=== PATIENT | female | born 1980 | race Caucasian/White ===

== ENCOUNTER 2018-01-12 21:56 | Emergency (ER) | payer MEDICAID, SELFPAY ==
[2018-01-12 21:58] VITALS: BP 127/87; PULSE 125; RESP 22; TEMP 36.4; O2SAT 97; BMI 28.3
[2018-01-12 23:21] VITALS: PULSE 92; RESP 18; O2SAT 100
--- NOTE | 2018-01-12 23:22 | ED.VISSUMM ---
- ER Visit Summary Date of Service: 01/12/18 Chief Complaint: Constipation History of Present Illness: The patient is a 37 F who states that she is possibly 9 weeks . She is not exactly sure. 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 She states she had an ultrasound showed a single live intrauterine . She states she was taking Zofran for nausea not realizing that it can cause constipation. She states that she has not had a bowel movement for 2 weeks. She states that she feels rectal pressure and the urge to go but just cannot. She has tried 2 different types of stool softeners and today drank half a bottle of magnesium citrate. She states then she began to shake (she has a history of tremors with anxiety). She states that then she started to hyperventilate. Physical Examination: Afebrile vital signs stable Gen: Well-nourished well-developed Head: Normocephalic atraumatic Eyes: Perrl EOMI ENT: TMs clear no rhinorrhea moist mucous membranes Neck: Supple no lymphadenopathy no JVD nontender CVS: Regular rate rhythm no murmurs normal S1-S2 Respiratory: No distress clear to auscultation bilaterally chest nontender Abdomen: Soft nontender nondistended normal bowel sounds no masses Rectal: Rectal exam shows soft stool in the rectal vault. There is no obvious impaction. Back: Nontender Extremity: Nontender no edema Skin: Normal color no rash Neuro: alert orientated ?3 CN II-XII intact normal strength sensation reflexes gait cerebellar Psych: Anxious with a tremor that is inconsistent based on the patient's ability to laugh her to speak it will resolve. Emergency Department Course and Treatment: She will use magnesium citrate. I do not see a reason why she cannot have a bowel movement soon. I do not believe she needs to be disimpacted as there is no impaction. She will follow-up with her doctors return if worsening or concerns Impression: 1. Constipation 2. First trimester This note was generated with Fooooo dictation software. It may contain incorrect words, spelling, and punctuation that were not noted in review of the chart prior to signing ED Disposition - Plan for ED Patient: Disposition: Home or Assisted Living Chief Complaint: Constipation Instructions: ED Constipation Prescriptions: Magnesium Citrate [Citrate Of Magnesia] 300 ml PO X1 #3 bottle Referrals: Malia,Velasquez, DO [Primary Care Provider] - As Needed
--- NOTE | 2018-01-12 23:25 | ED.DCSUM_ITS ---
- ER Visit Summary Date of Service: 01/12/18 Chief Complaint: Constipation History of Present Illness: The patient is a 37 F who states that she is possibly 9 weeks . She is not exactly sure. 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 She states she had an ultrasound showed a single live intrauterine . She states she was taking Zofran for nausea not realizing that it can cause constipation. She states that she has not had a bowel movement for 2 weeks. She states that she feels rectal pressure and the urge to go but just cannot. She has tried 2 different types of stool softeners and today drank half a bottle of magnesium citrate. She states then she began to shake (she has a history of tremors with anxiety). She states that then she started to hyperventilate. Physical Examination: Afebrile vital signs stable Gen: Well-nourished well-developed Head: Normocephalic atraumatic Eyes: Perrl EOMI ENT: TMs clear no rhinorrhea moist mucous membranes Neck: Supple no lymphadenopathy no JVD nontender CVS: Regular rate rhythm no murmurs normal S1-S2 Respiratory: No distress clear to auscultation bilaterally chest nontender Abdomen: Soft nontender nondistended normal bowel sounds no masses Rectal: Rectal exam shows soft stool in the rectal vault. There is no obvious impaction. Back: Nontender Extremity: Nontender no edema Skin: Normal color no rash Neuro: alert orientated ?3 CN II-XII intact normal strength sensation reflexes gait cerebellar Psych: Anxious with a tremor that is inconsistent based on the patient's ability to laugh her to speak it will resolve. Emergency Department Course and Treatment: She will use magnesium citrate. I do not see a reason why she cannot have a bowel movement soon. I do not believe she needs to be disimpacted as there is no impaction. She will follow- up with her doctors return if worsening or concerns Impression: 1. Constipation 2. First trimester This note was generated with Trac[employer] dictation software. It may contain incorrect words, spelling, and punctuation that were not noted in review of the chart prior to signing ED Disposition - Plan for ED Patient: Disposition: Home or Assisted Living Chief Complaint: Constipation Instructions: ED Constipation Prescriptions: Magnesium Citrate [Citrate Of Magnesia] 300 ml PO X1 #3 bottle Referrals: Malia,Velasquez, DO [Primary Care Provider] - As Needed
[2018-01-12] MEDS: Magnesium Citrate 300 ML PO (23:30)
== END 2018-01-12 23:45 | disposition home or self-care (01) ==
PROVIDERS: Emergency Provider Emergency Medicine; Family Provider Family Medicine; PCP Family Medicine
DX: O99.89 Other specified diseases and conditions complicating pregnancy, childbirth and the puerperium (principal); K59.00 Constipation, unspecified; O99.341 Other mental disorders complicating pregnancy, first trimester; F41.0 Panic disorder [episodic paroxysmal anxiety]; O99.331 Smoking (tobacco) complicating pregnancy, first trimester; F17.200 Nicotine dependence, unspecified, uncomplicated; Z3A.00 Weeks of gestation of pregnancy not specified
CPT/HCPCS: 99283

== ENCOUNTER 2018-08-07 09:00 | Inpatient (IN) | payer MEDICAID, SELFPAY ==
[2018-08-07 09:07] VITALS: BMI 32.9
[2018-08-07] MEDS: Lactated Ringers 1,000 ML 50 ML IV ×2 (09:15→10:17)
[2018-08-07 09:34] LABS: Hematocrit 37.5 % (37-47); Hemoglobin 12.7 g/dl (12.0-15.0); Mean Corp Hgb Conc 33.9 g/gl (32-36); Mean Corpuscular Hgb 29.9 pg (27.0-32.0); Mean Corpuscular Volume 88.2 fL (81-99); Mean Platelet Vol. 9.5 fl (6.2-12.0); Platelet Count 384 K/mm3 (150-450); RBC Distribution Width CV 13.3 % (11.6-14.6); RBC Distribution Width SD 41.8 fl (35.1-43.9); Red Blood Count 4.25 M/mm3 (4.2-5.4)
[2018-08-07 09:37] LABS: Scan Indicated on CBC? Y/N NO
--- NOTE | 2018-08-07 11:50 | HP.PCM_ITS ---
History Date of Admission: 08/07/18 Final TRIP: 08/09/18 Gestational age: 39 Weeks and 5 Days History of this : This is a 38 year-old, G [], P [], at 39 weeks gestational age. 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 Chronic bronchitis J42 Chronic cough R05 Chronic lumbar pain M54.5, G89.29 NARAYANAN (dyspnea on exertion) R06.09 Eczema L30.9 Fatigue R53.83 Fibromyalgia M79.7 Hypersomnia G47.10 Lateral epicondylitis M77.10 Migraines G43.909 Near sighted H52.10 ISIAH (obstructive sleep apnea) G47.33 Obesity E66.9 Panic disorder F41.0 Seasonal allergies J30.2 Skin lesions L98.9 Tobacco abuse Z72.0 Vitamin D deficiency E55.9 History of alcohol abuse Z87.898 stopped with first Surgical History: Surgical History (Last Updated 06/15/17 @ 15:02 by Radha Thompson) Cervical procedures for precancerous cells H/O excision of ganglion cyst Z98.890 09/15/14 Allergies acetaminophen [From Vicodin] Allergy (Verified 01/12/18 22:00) Itching hydrocodone Allergy (Verified 01/12/18 22:00) Itching hydrocodone bitartrate [From Vicodin] Allergy (Verified 01/12/18 22:00) Itching Penicillins Allergy (Verified 01/12/18 22:00) Rash cephalexin monohydrate [From Keflex] Adverse Reaction (Verified 01/12/18 22:00) Other BLACKOUT Home Medications: Home Medications Phenergan 08/07/18 Smoking Status: Current every day smoker Substance Use Type: Marijuana History Past Pregnancies: Past Pregnancies Delivery Date Name GA/Weeks Outcome Route Weight Gender Labor Length Anesthesia Delivery Location Provider FOB Labs: GBS positive see [facility] prenatals Physical Exam General: Alert, Oriented x3 Abdomen: Soft, Non Tender, Non-Distended, Gravid Assessment/Plan This is a 38 year-old femalt at 39&5 weeks gestational age. Patient was admitted to L&D for labor. She received clindamycin for GBS positive (per sensitivities). Patient had - see delivery note.
--- NOTE | 2018-08-07 11:50 | PCM.OB.VAG ---
Vaginal Delivery Maternal Presentation: Active Labor Amniotic Membrane Rupture Type: Artificial Amniotic Fluid Description: Clear Final TRIP: 08/09/18 Gestational age: 39 Weeks and 5 Days Date of Procedure: 08/07/18 Pre-Operative Diagnosis: Labor Post-Operative Diagnosis: Labor Surgery/ Procedure Performed: Spontaneous Vaginal Delivery Type of Anesthesia: Epidural Description of Procedure: Patient ruptured when 9/c/0. She was then c/c/+1. Patient pushed 1 time & delivered head. Shoulders & body followed & infant was placed on maternal abdomen. 3VC clamped & cut in delayed fashion. Placenta delivered with gentle traction and good uterine tone obtained. Presentation: MICHELLE Placental Delivery Description: Expressed Placenta Disposition: [facility] Cord Vessel Description: 3 Vessels Cord Entanglement: None Estimated Blood Loss: 300ml Infant A gender: Female (1 minute): 9 (5 minute): 9 Episiotomy Description: None Laceration: Vaginal Extension/lac - repaired with 3-0 vicryl Medications given after delivery: - - IM pitocin Complications: None
[2018-08-07] MEDS: Ibuprofen 600 MG Tablet PO ×2 (12:38→19:35)
[2018-08-07] MEDS: Acetaminophen 500 MG Tablet 1000 MG PO (13:44)
[2018-08-07 16:00] VITALS: BP 127/74; PULSE 92; RESP 16; TEMP 37.2
[2018-08-07] MEDS: oxyCODONE 5 MG Tablet PO ×2 (17:21→23:38)
[2018-08-07 19:36] VITALS: BP 107/57; PULSE 77; RESP 18; TEMP 37.1; O2SAT 97
[2018-08-07 23:39] VITALS: BP 101/46; PULSE 74; RESP 18; TEMP 36.8; O2SAT 96
[2018-08-08] MEDS: Acetaminophen 500 MG Tablet 1000 MG PO (04:26)
[2018-08-08 04:27] VITALS: BP 128/76; PULSE 64; RESP 17; TEMP 36.7; O2SAT 98
[2018-08-08 07:45] VITALS: BP 131/65; PULSE 63; RESP 18; TEMP 36.7
[2018-08-08] MEDS: Ibuprofen 600 MG Tablet PO ×2 (07:50→16:24)
--- NOTE | 2018-08-08 08:02 | PCM.PN.OB ---
Subjective: Pt doing well. No complaints. Tolerating reg diet without N/V. Spont voiding without difficulty. Lochia normal. Denies lightheadedness, CP, SOB, leg pain. Breast and bottle feeding. - Physical Exam General: Alert, No apparent distress HEENT: Atraumatic Lungs: - - No increased resp effort Abdomen: Soft, Non Tender, - - FF@U-1 Extremities: No edema, No Calf Tenderness Skin: No rashes Neurological: Neuro grossly intact Psych/Mental Status: Normal Affect, Appropriate Vital Signs Temp Pulse Resp BP Pulse Ox 98.1 F 64 17 128/76 H 98 08/08/18 04:27 08/08/18 04:27 08/08/18 04:27 08/08/18 04:27 08/08/18 04:27 Oxygen Delivery Method Room Air Weight: 180 lb Body Mass Index (BMI) 32.9 Laboratory Tests Past 24 Hrs 08/07/18 08/07/18 09:10 09:10 WBC 13.0 H RBC 4.25 Hgb 12.7 Hct 37.5 MCV 88.2 MCH 29.9 MCHC 33.9 RDW 13.3 RDW Differential 41.8 Plt Count 384 MPV 9.5 Blood Type A NEGATIVE Antibody Screen NEGATIVE Medical Necessity - Tobacco Use Smoking Status: Current every day smoker Assessment/Plan PPD#1 s/p - Doing well - Breast and bottle feeding - Planning for tubal. Discussed will schedule after 6 week visit - Dispo: Routine care. D/c home tomorrow
[2018-08-08 11:20] VITALS: BP 112/65; PULSE 94; RESP 18; TEMP 36.5
--- NOTE | 2018-08-08 14:13 | NURSING ---
08/08/18 1030 Discussed with pt importance of bottle feeding since mother and baby were + THC in urine. Chemist Internship recommends not for at least 3-5 days after last use. Pt agrees to bottle feed today. Reviewed importance of not if she uses marijuana.
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
[2018-08-08 18:03] VITALS: BP 107/62; PULSE 85; RESP 18; TEMP 36.7
[2018-08-08 19:29] VITALS: BP 118/69; PULSE 82; RESP 18; TEMP 36.6; O2SAT 97
[2018-08-09 02:00] VITALS: BP 137/68; PULSE 66; RESP 16; TEMP 36.6; O2SAT 97
[2018-08-09 08:10] VITALS: BP 132/76; PULSE 84; RESP 18; TEMP 36.4; O2SAT 96
[2018-08-09] MEDS: Ibuprofen 600 MG Tablet PO (09:18)
--- NOTE | 2018-08-09 11:48 | PCM.PN.OB ---
Subjective: Patient is doing well. She is ambulating and spontaneously voiding without difficulty. She is tolerating regular diet without nausea or vomiting. Lochia normal. She denies lightheadedness, chest pain, shortness of breath, leg pain. She feels ready to go home today. - Physical Exam General: Alert, No apparent distress HEENT: Atraumatic Lungs: - - No increased resp effort Abdomen: Soft, Non Tender, - - FF@U-1 Extremities: No edema Skin: No rashes Neurological: Neuro grossly intact Psych/Mental Status: Normal Affect, Appropriate Vital Signs Temp Pulse Resp BP Pulse Ox 97.5 F L 84 18 132/76 H 96 08/09/18 08:10 08/09/18 08:10 08/09/18 08:10 08/09/18 08:10 08/09/18 08:10 Oxygen Delivery Method Room Air Weight: 180 lb Body Mass Index (BMI) 32.9 Medical Necessity - Tobacco Use Smoking Status: Current every day smoker Assessment/Plan PPD#2 s/p - Doing well - Discharge home today - Reviewed follow up
--- NOTE | 2018-08-09 11:50 | DCINST_ITS ---
Discharge Diet: No Restrictions Discharge Activity: Return to Normal Activity, May Shower May resume sexual activity in: 6 weeks Weight Bearing Status: Full weight bearing Lifting Restrictions: None Call your doctor if you observe: Fever of 101 or Higher, Inability to urinate, Inability to have a bowel movement, Using more than one pad per hour, Shortness of breath, Dizziness, Chest pain, Increased palpitations (irregular heartbeat), Calf discomfort, Uncontrolled pain Cleanse incision/area with: Soap & Water Additional Instructions: If you experience any of the following, contact your healthcare provider. * Bleeding that soaks a pad every hour for 2 hours * Fever 100.4 or higher * Unrelieved incision or abdominal pain * Swelling, redness, discharge or bleeding from your incision or episiotomy site * Your incision begins to separate * Problems urinating (including inability to urinate or burning while urinating). * Visual changes * Severe headache * Flu-like symptoms * Pain or redness in one of both of your breasts * Pain, warmth, tenderness or swelling in your legs, especially the calf area * Frequent nausea and vomiting * Symptoms of depression or anxiety If you experience any of the following, call 911 or go to the nearest Emergency Room. * Chest pain * Problems breathing * Seizure activity * Partial or complete paralysis of a body part, slurred speech, weakness or drooping of the face, or a sudden inability to walk or hold your balance Allergies/Adverse Reactions: Allergies acetaminophen [From Vicodin] Allergy (Verified 01/12/18 22:00) Itching hydrocodone Allergy (Verified 01/12/18 22:00) Itching hydrocodone bitartrate [From Vicodin] Allergy (Verified 01/12/18 22:00) Itching Penicillins Allergy (Verified 01/12/18 22:00) Rash cephalexin monohydrate [From Keflex] Adverse Reaction (Verified 01/12/18 22:00) Other BLACKOUT Medications to take at Discharge Phenergan 08/07/18 Please Follow Up With: Citlaly Ngo When: 4-6 weeks . Can also follow up in 1-2 weeks if you desire Primary Care Physician: Velaqsuez Finley, [Primary Care Provider] - Test Results: Test results from this visit will be discussed in further detail at your follow- up appointment, if applicable.
[2018-08-09 12:36] VITALS: BP 128/64; PULSE 87; RESP 14; TEMP 36.4
--- NOTE | 2018-08-09 13:57 | CASEMGMT ---
Social Work Labor and Delivery Unit Summary: Presented to mother of baby (MOB) room to provide resources for home going. MOB reports to feel ready to discharge home and reports the baby slept pretty well last night, as well as feeding though MOB reports belief that the nipple on the bottles at hospital may not be the right flow for baby. Reviewed with MOB [facility] resource list, [facility] resources list, list of apartments, Community Action brochure and depression packet. Explored with MOB where older children attend [facility], [facility] or [facility]. Per MOB the older children are registered at [facility]. Also explored the names of father of baby (FOB) parents in the home. Bacilio and Julianna Loaiza are the identified parents. 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 Let MOB know that [facility] will likely be making contact with MOB at some point. MOB denies intent to restart marijuana use. MOB reports to have adequate support from family and friends regarding social stressors present. Assessment: MOB pleasant, laughing at times, speech more controlled today as compared to rambling yesterday. MOB attentive to baby when baby started to fuss, placed pacifier in baby's mouth, held baby, and stroked baby's head. MOB was calm when handling baby. MOB reports can purchase formula at time of discharge as just got taxes back today. Food card will be loaded tomorrow as well. MOB accepted resources offered. No outward response to social security benefits interviewer informing MOB of likely children service contact after home going. Interventions: After meeting with MOB called [facility] ([facility]) at [phone]. Spoke with Ivanna in intake. Referral to [facility] due to address living at for last couple of months being in [facility]. [address], [place] [address]. Also children are registered at in [facility] school district. Referral to Ivanna for substance exposed , positive drug screen in mom at beginning of and then baby being positive at delivery; meconium is pending. Reported additional concerns/risk factors/stressors for this family including MOB's history of mental health issues without mental health treatment, FOB having bipolar disorder and not on current medications, moving homes during this , MOB's older child with new diagnosis of cancer. Reported that MOB has appeared to be taking care of baby at hospital, reports to have supplies for baby, and reports that has support from family an friends. [facility] made aware of family discharging home today. Plan: Discharge home, resources provided to MOB for [facility], depression information, and referral to [facility] who will likely be following in the community. -YANNICK Hidalgo, PRINCIPAL NETWORK ENGINEER
== END 2018-08-09 13:45 | disposition home or self-care (01) | DRG 560 ==
PROVIDERS: Admitting Provider Obstetrics & Gynecology; Family Provider Family Medicine; PCP Family Medicine; Referring Provider Obstetrics & Gynecology; Visit Provider Obstetrics & Gynecology
DX: O71.4 Obstetric high vaginal laceration alone (principal); O98.82 Other maternal infectious and parasitic diseases complicating childbirth; B95.1 Streptococcus, group B, as the cause of diseases classified elsewhere; O99.334 Smoking (tobacco) complicating childbirth; O99.324 Drug use complicating childbirth; F12.90 Cannabis use, unspecified, uncomplicated; Z22.330 Carrier of Group B streptococcus; Z3A.39 39 weeks gestation of pregnancy; Z37.0 Single live birth; Z87.898 Personal history of other specified conditions
CPT/HCPCS: 59025; 59050; 85027; 86850; 86900; 99218; J7120; G0378; J3490

== ENCOUNTER → 2018-10-29 09:01 | Outpatient (CLI) | payer MEDICAID, SELFPAY ==
[2018-10-29 10:46] LABS: AST(SGOT) 11 U/L (15-37); Alanine Aminotransfer ALT/SGPT 18 U/L (13-56); Albumin, Serum 3.5 g/dL (3.2-5.0); Alkaline Phosphatase 66 U/L (45-117); Anion Gap 8 (5-15); BUN 6 mg/dL (7-18); BUN/Creat Ratio 7.9 RATIO (10-20); Calcium,Total 8.8 mg/dL (8.5-10.1); Chloride 106 mmol/L (98-107); Creatinine, Serum 0.76 mg/dL (0.55-1.02); EST Glomerular Filtration Rate 90 mL/min (>60); Est Glom Filt Rate - Afr Amer 109 mL/min (>60); Globulin 3.6 g/dL (2.2-4.2); Glucose 77 mg/dL (74-106); Potassium 4.1 mmol/L (3.5-5.1); Protein, Total 7.1 g/dL (6.4-8.2); Sodium Level 141 mmol/L (136-145); T4 Free Direct 0.93 ng/dL (0.76-1.46)
== END ==
PROVIDERS: Family Provider Family Medicine; PCP Family Medicine; Referring Provider Family Medicine; Visit Provider Family Medicine
DX: R79.89 Other specified abnormal findings of blood chemistry (principal); R53.83 Other fatigue
CPT/HCPCS: 36415; 80053; 84439; 84443

== ENCOUNTER 2018-11-01 07:27 | Day surgery (SDC) | payer MEDICAID, SELFPAY ==
--- NOTE | 2018-10-31 17:59 | PCM.HP.OB ---
- Problem List (1) Sterilization Status: Acute History Date of Admission: 11/01/18 History of this : This is a 38 year-old multiparous women who desires permanent sterilization after discussion of risks, benefits, and alternatives. 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 Chronic bronchitis J42 Chronic cough R05 Chronic lumbar pain M54.5, G89.29 NARAYANAN (dyspnea on exertion) R06.09 Eczema L30.9 Fatigue R53.83 Fibromyalgia M79.7 Hypersomnia G47.10 Lateral epicondylitis M77.10 Migraines G43.909 Near sighted H52.10 ISIAH (obstructive sleep apnea) G47.33 Obesity E66.9 Panic disorder F41.0 Seasonal allergies J30.2 Skin lesions L98.9 Tobacco abuse Z72.0 Vitamin D deficiency E55.9 History of alcohol abuse Z87.898 stopped with first Surgical History: Surgical History (Last Updated 06/15/17 @ 15:02 by Radha Thompson) Cervical procedures for precancerous cells H/O excision of ganglion cyst Z98.890 09/15/14 Allergies acetaminophen [From Vicodin] Allergy (Verified 10/08/18 08:48) Itching hydrocodone Allergy (Verified 10/08/18 08:48) Itching hydrocodone bitartrate [From Vicodin] Allergy (Verified 10/08/18 08:48) Itching Penicillins Allergy (Verified 10/08/18 08:48) Rash cephalexin monohydrate [From Keflex] Adverse Reaction (Verified 10/08/18 08:48) Other BLACKOUT Home Medications: Home Medications NK 10/08/18 Smoking Status: Current every day smoker Alcohol: None Substance Use Type: Marijuana History Past Pregnancies: Past Pregnancies Delivery Date Name GA/Weeks Outcome Route Weight Gender Labor Length Anesthesia Delivery Location Provider FOB Review of Systems Constitutional: Denies: Malaise HEENT: Denies: Head Aches Cardiovascular: Denies: Chest Pain Respiratory: Denies: Shortness of Breath Gastrointestinal: Denies: Abdominal Pain Genitourinary: Denies: Dysuria Neurological: Denies: Blurred vision, Tremor, Seizures Physical Exam General: Alert, No apparent distress HEENT: Atraumatic Cardiovascular: Regular rate Lungs: - - No increased resp effort Abdomen: Soft, Non Tender, Non-Distended Extremities:: No edema Neurological: Neuro grossly intact Assessment/Plan All Active Problems (Last Updated 06/15/17 @ 15:02 by Radha Thompson) Sterilization (Acute) This is a 38 year-old multiparous patient who desires permanent sterilization. Risks, benefits, alternatives were fully discussed and she was consented. Will get UDS on admission. H/o tobacco use and not compliant with treatment for asthma, COPD, ISIAH - discussed risks of this with surgery. She is 100% certain she wants permanent sterilization.
[2018-11-01] VITALS (7 sets, daily range): BP systolic 99–145; BP diastolic 45–80; PULSE 52–66; RESP 16–18; TEMP 36.4–36.9; O2SAT 92–99; BMI 30.7
--- NOTE | 2018-11-01 | FALS_PTH ---
PATIENT: RICARDO HYATT LOC: [facility] U#:[id number] AGE/SX: 38/F ROOM: RE11/01/[address]: Dr. Michelle Park DO : 1980 BED: DIS: 11/01/2018 SPEC #: [id number] RECD: 11/01/18 13:07 STATUS: REBEKAH FREDO #: [id number] SLAVA: 11/01/18 00:[address]: Michelle Park DEPT: SURGICAL PATHOLOGY RECD BY: Khoa Vee ENTERED: 11/01/18 13:07 SP TYPE: FALL TUBES OTHR DR: Dr. Velasquez Finley DO Tissues: Fallopian tube Procedures: Surgery Specimen Level II HEADER OPERATION: Laparoscopic salpingectomy PRE-OP DIAGNOSIS: Sterilization TISSUE SUBMITTED: Bilateral fallopian tubes MICROSCOPIC DIAGNOSIS Bilateral fallopian tubes, laparoscopic salpingectomy: Bilateral fallopian tubes with complete lumen. Small paratubal cyst. CE:luz elena 11/02/18 MICROSCOPIC DESCRIPTION Slides are reviewed. GROSS DESCRIPTION Received is one container labeled with the patient's name and designated bilateral fallopian tubes. The specimen consists of two fallopian tubes with an average length of 4.5 cm and has an average diameter of 0.5 cm. Both fallopian tubes have normal fimbriated ends. No mass lesions are identified. Meal Cooker sections are submitted in two cassettes as follows: 1 - one fallopian tube, 2 - the other fallopian tube. / AM:luz elena 11/01/18 TC:5 CPT: 44045 x2
--- NOTE | 2018-11-01 07:41 | EKG12_ITS ---
Test Reason : PRE OP Blood Pressure : / mmHG Vent. Rate : 068 BPM Atrial Rate : 068 BPM P-R Int : 164 ms QRS Dur : 088 ms QT Int : 424 ms P-R-T Axes : 060 030 041 degrees QTc Int : 450 ms Normal sinus rhythm Normal ECG When compared with ECG of 10-DEC-1999 00:58, QT has lengthened Confirmed by SULLY LINDSAY ([id number]), editor publications DEE BURRELL ([id number]) on 11/05/2018 4:55:54 PM Referred By: Michelle Park Confirmed By:JOEL LINDSAY
[2018-11-01 07:54] LABS: Internal QC Validated? YES +Cl - CLEAR BKGD; Pregnancy, Urine Negative Negative
[2018-11-01 07:58] LABS: Hematocrit 39.5 % (37-47); Hemoglobin 13.5 g/dl (12.0-15.0); Mean Corp Hgb Conc 34.2 g/gl (32-36); Mean Corpuscular Hgb 29.4 pg (27.0-32.0); Mean Corpuscular Volume 86.1 fL (81-99); Mean Platelet Vol. 8.5 fl (6.2-12.0); Platelet Count 387 K/mm3 (150-450); RBC Distribution Width CV 13.4 % (11.6-14.6); RBC Distribution Width SD 42.3 fl (35.1-43.9); Red Blood Count 4.59 M/mm3 (4.2-5.4); White Blood Count 8.1 K/mm3 (4.4-11.0)
[2018-11-01 08:00] LABS: Scan Indicated on CBC? Y/N NO
[2018-11-01 08:11] LABS: Amphetamine Urine VISTA NEGATIVE (<1000 ng/mL); Barbiturate Urine VISTA NEGATIVE (< 200 ng/mL); Benzodiazepine Urine VISTA NEGATIVE (< 200 ng/mL); Cocaine Urine VISTA NEGATIVE (< 300 ng/mL); Ecstacy Urine VISTA NEGATIVE (< 500 ng/mL); Methadone Urine VISTA NEGATIVE (< 300 ng/mL); PCP Urine VISTA NEGATIVE (< 25 ng/mL); THC Urine VISTA POSITIVE (< 50 ng/mL); Vista UDS pH Range 5
[2018-11-01] MEDS: Bupivacaine Mpf 0.5% 30 ML VIAL (09:44)
--- NOTE | 2018-11-01 09:53 | DCINST_ITS ---
You will use the following diet at home:: No restrictions, Regular Your food should be the consistency of: Regular Discharge Activity: Return to Normal Activity, May not drive while taking narcotic pain medications., May Shower May resume sexual activity in: 10-14 days Weight Bearing Status: Weight bearing as tolerated, Full weight bearing Lifting Restrictions: No heavy lifting greater than 30 pounds Call your doctor if your incision/area has: Sudden Increased Bleeding, Increased Pain/ Swelling, Increased Redness, Foul Smelling Discharge, Swelling at the incision site Call your doctor if you observe: Fever of 101 or Higher, Inability to urinate, Inability to have a bowel movement, Using more than one pad per hour, Shortness of breath, Dizziness, Chest pain, Increased palpitations (irregular heartbeat), Calf discomfort, Uncontrolled pain Suture Line Care: Avoid Pulling/Pushing Cleanse incision/area with: Soap & Water Allergies/Adverse Reactions: Allergies acetaminophen [From Vicodin] Allergy (Verified 10/08/18 08:48) Itching hydrocodone Allergy (Verified 10/08/18 08:48) Itching hydrocodone bitartrate [From Vicodin] Allergy (Verified 10/08/18 08:48) Itching Penicillins Allergy (Verified 10/08/18 08:48) Rash cephalexin monohydrate [From Keflex] Adverse Reaction (Verified 10/08/18 08:48) Other BLACKOUT Medications to take at Discharge NK 10/08/18 Orders to be completed after discharge: 12 Lead EKG [CVS] Time Frame: 10/08/18, Facility: [facility], Location: Cardiovascular Services CBC-Complete Blood Cnt No Diff Time Frame: 10/08/18, Location: Laboratory ,Urine Time Frame: 11/01/18, Location: Laboratory Primary Care Physician: Velasquez Finley DO [Primary Care Provider] - Test Results: Test results from this visit will be discussed in further detail at your follow- up appointment, if applicable. Please Follow Up With: Michelle Park DO When: 1-2 weeks Proposed Discharge Date: 11/01/18
--- NOTE | 2018-11-01 10:37 | OP.PCM_ITS ---
Problem List (1) Sterilization Status: Acute Report of Operation Date of Procedure: 11/01/18 Pre-Operative Diagnosis: Desires permanent sterilization Post-Operative Diagnosis: As above Surgery/Procedure Performed:: Laparoscopic bilateral salpingectomy Description of Surgical Findings:: Normal appearing uterus and bilateral adnexa. Normal appearing liver. Normal pelvic CDS and bilateral ovarian fossas Type of Anesthesia:: General Specimen's removed: Bilateral fallopian tubes Drains: None Estimated Blood Loss (mL): 5 cc Description of Procedure: General anesthesia was adequate. Patient prepped and draped in usual sterile fashion in dorsal lithotomy position using yellow fin stirrups. Straight catheterization was performed for 100 cc. A weighted speculum was placed to expose the cervix. A single tooth tenaculum was placed on the anterior lip of the cervix and a uterine manipulator was placed. Gloves were changed and attention was turned to the abdominal portion of the case. Marcaine was injected infraumbilically and an incision was made to accommodate a 5 mm port. The camera and 5 mm port were placed under direct visualization. Once confirmed intraperitoneal, the abdomen was insufflated. One right and one left lateral 5 mm ports were placed after injection with Marcaine. Findings were noted as above. The left fallopian tube was followed out to the fimbriated end, and removed using the Ligasure device. The same was performed on the right side. The bilateral fallopian tubes were sent to pathology for review. Pictures were taken. Hemostasis was noted. The ports were removed. The incisions were closed with Monocryl in subcuticular fashion and Dermabond was placed over the incisions. All instruments were removed from the vagina. Instrument counts were correct. The patient was taken to the recovery room in stable condition. Grafts/Implants Used: None - Complications None - Admit VTE Documentation VTE Present on Admission: No VTE Mechan Device Prophylaxis: [facility]'s VTE Pharm Prophylaxis ordered?: No
== END 2018-11-01 11:25 | disposition home or self-care (01) ==
LOC: SDC 07:28 → AC 07:29
PROVIDERS: Family Provider Family Medicine; PCP Family Medicine; Referring Provider Obstetrics & Gynecology; Visit Provider Obstetrics & Gynecology
PROC: (CPT 58661; principal; 2018-11-01 08:40)
DX: Z30.2 Encounter for sterilization (principal); N83.8 Other noninflammatory disorders of ovary, fallopian tube and broad ligament; J44.9 Chronic obstructive pulmonary disease, unspecified; G47.33 Obstructive sleep apnea (adult) (pediatric); M79.7 Fibromyalgia; Z88.5 Allergy status to narcotic agent; Z88.0 Allergy status to penicillin; F17.200 Nicotine dependence, unspecified, uncomplicated; F12.10 Cannabis abuse, uncomplicated; Z91.19 Patient's noncompliance with other medical treatment and regimen
CPT/HCPCS: 58661; 80307; 81025; 85027; 88302; 93005; J7120; J2405

== ENCOUNTER → 2019-06-26 14:10 | Outpatient (CLI) | payer MEDICAID, SELFPAY ==
[2018-11-01 07:50] VITALS: BMI 30.7
--- NOTE | 2019-06-26 14:20 | RAD_ITS ---
STUDY: X-RAY - LUMBAR SPINE REASON FOR EXAM: Female, 39 years old. CHRONIC LOW BACK PAIN TECHNIQUE: 5 view(s) of the lumbar spine were obtained. COMPARISON: 10/24/2013 FINDINGS: Normal lumbar lordosis. There is no substantial scoliosis. There is a normal alignment of the vertebrae. There is multilevel endplate spondylosis of the lumbar vertebrae. Normal disc space heights. There is no demonstrated fracture. There is no demonstrated spondylolysis of the pars interarticulares. The soft tissue structures are unremarkable. RAD/L/S Spine Min 4 Views IMPRESSION: 1. Mild lumbar spondylosis with relative preservation of disc heights. Stable exam. Electronically Signed: Garry Miller MD (Brooks) at 8:16 EST , Service support ,
== END ==
PROVIDERS: Family Provider Family Medicine; PCP Family Medicine; Referring Provider Family Medicine; Visit Provider Family Medicine
DX: M54.5 Low back pain (principal)
CPT/HCPCS: 72110

== ENCOUNTER → 2020-04-23 13:45 | Outpatient (CLI) | payer MEDICAID, SELFPAY ==
[2018-11-01 07:50] VITALS: BMI 30.7
[2020-04-23 14:03] LABS: Erythrocyte Sedimentation Rate 15 mm/hr (0-20)
[2020-04-23 14:26] LABS: CRP 5.38 mg/L (0.0-3.0); Rheumatoid Factor < 10.0 IU/mL (<15)
[2020-04-25 10:33] LABS: CCP IgG Antibodies 7 units (0-19)
== END ==
PROVIDERS: PCP Family Medicine; Visit Provider Family Medicine
DX: M25.50 Pain in unspecified joint (principal)
CPT/HCPCS: 36415; 85652; 86038; 86140; 86200; 86431

== ENCOUNTER → 2020-05-04 09:55 | Outpatient (CLI) | payer MEDICAID, SELFPAY ==
[2018-11-01 07:50] VITALS: BMI 30.7
--- NOTE | 2020-05-04 10:05 | MRI_ITS ---
STUDY: MRI LEFT KNEE REASON FOR EXAM: Female, 40 years old. Left knee pain. Instability. TECHNIQUE: Standardized fat and water weighted pulse sequences were obtained in all 3 orthogonal planes. COMPARISON: X-ray dated 11/24/2014. FINDINGS: Grade 2/3 patellofemoral cartilage loss. Medial compartment grade 3 cartilage loss. Lateral compartment articular cartilage preserved. No acute fracture. No acute dislocation. No acute bone destruction. Medial meniscus intact. Lateral meniscus intact. Small volume joint effusion. Small popliteal cyst. Minimal soft tissue swelling. Normal medial collateral ligamentous complex (MCL). Normal distal semimembranosus, gracilis and semitendinosus tendons. Normal proximal tibiofibular articulation. Normal lateral collateral (fibular) ligament. Normal popliteus tendon. Normal biceps femoris tendon. Normal anterior cruciate ligament (ACL). Normal posterior cruciate ligament (PCL). Normal medial and lateral patellar retinaculum. Normal quadriceps tendon. Normal patellar tendon. Normal Hoffa''s fat pad. 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
== END ==
PROVIDERS: PCP Family Medicine; Referring Provider Family Medicine; Visit Provider Family Medicine
DX: M25.562 Pain in left knee (principal); M79.89 Other specified soft tissue disorders
CPT/HCPCS: 73721

== ENCOUNTER → 2020-08-13 11:39 | Outpatient (CLI) | payer MEDICAID, SELFPAY ==
[2018-11-01 07:50] VITALS: BMI 30.7
[2020-08-13 15:34] LABS: Absolute Lymphocyte Count 3.18 X10^3/uL (0.83-4.51); Basophil# 0.03 X10^3/uL; Basophil% 0.3 % (0-1); Eosinophil# 0.14 X10^3/uL; Eosinophils% 1.3 % (0-5); Hematocrit 41.8 % (37-47); Hemoglobin 13.8 g/dL (12.0-15.0); Lymphocyte # 3.18 X10^3/ul (4.0); Lymphocyte % 29.4 % (19-41); Mean Corpuscular Hgb 30.3 pg (27.0-32.0); Mean Corpuscular Volume 91.9 fL (81-99); Mean Platelet Vol. 9.9 fl (6.2-12.0); Monocyte# 0.44 X10^3/uL; Monocyte% 4.1 % (0-10); NRBC Flagged by Analyzer 0 % (0-5); Neutrophil # 6.98 X10^3/uL (2.7-7.7); Neutrophil % 64.4 % (47-70); Platelet Count 356 K/mm3 (150-450); RBC Distribution Width CV 13.1 % (11.6-14.6); RBC Distribution Width SD 43.4 fl (35.1-43.9); Red Blood Count 4.55 M/mm3 (4.2-5.4); White Blood Count 10.8 K/mm3 (4.4-11.0)
[2020-08-13 15:57] LABS: AST(SGOT) 11 U/L (15-37); Alanine Aminotransfer ALT/SGPT 25 U/L (13-56); Albumin, Serum 3.6 g/dL (3.2-5.0); Alkaline Phosphatase 83 U/L (45-117); Anion Gap 7 (5-15); BUN 9 mg/dL (7-18); BUN/Creat Ratio 13.6 RATIO (10-20); Calcium,Total 8.7 mg/dL (8.5-10.1); Chloride 104 mmol/L (98-107); Creatinine, Serum 0.66 mg/dL (0.55-1.02); EST Glomerular Filtration Rate 105 mL/min (>60); Est Glom Filt Rate - Afr Amer 127 mL/min (>60); Globulin 3.5 g/dL (2.2-4.2); Glucose 74 mg/dL (74-106); Potassium 3.5 mmol/L (3.5-5.1); Protein, Total 7.1 g/dL (6.4-8.2); Sodium Level 137 mmol/L (136-145)
== END ==
PROVIDERS: PCP Family Medicine; Visit Provider Family Medicine
DX: Z51.81 Encounter for therapeutic drug level monitoring (principal)
CPT/HCPCS: 36415; 80053; 85025

== ENCOUNTER → 2021-02-04 17:52 | Outpatient (CLI) | payer MEDICAID, SELFPAY ==
[2018-11-01 07:50] VITALS: BMI 30.7
[2021-02-04 18:06] LABS: Erythrocyte Sedimentation Rate 22 mm/hr (0-30)
== END ==
PROVIDERS: PCP Family Medicine; Visit Provider Family Medicine
DX: M32.9 Systemic lupus erythematosus, unspecified (principal); M79.10 Myalgia, unspecified site
CPT/HCPCS: 85652

== ENCOUNTER 2021-07-30 13:06 | Outpatient (CLI) | payer MEDICAID, SELFPAY ==
--- NOTE | 2021-07-30 13:25 | CT_ITS ---
STUDY: CT SOFT TISSUE NECK WITH CONTRAST REASON FOR EXAM: Female, 41 years old. MASS SUPRACLAVICULAR SPACE RADIATION DOSAGE (If Supplied By Facility): CTDIvol = ( 19.90 ) mGy, DLP = ( 561.68 ) mGycm TECHNIQUE: The patient was scanned in a multi-detector CT scanner. High resolution transaxial imaging was performed following intravenous administration of IV 75mL Isovue-370. Sagittal and coronal images were reconstructed. Individualized dose optimization techniques were used for this CT. COMPARISON: None. FINDINGS: Normal bilateral parotid glands. Normal bilateral drift miner spaces. Normal bilateral parapharyngeal spaces. Normal bilateral carotid spaces. Normal bilateral sublingual and submandibular glands and spaces. Small benign appearing submental lymph nodes. Normal visualized nasopharynx. Normal retropharyngeal space. Normal perivertebral space. Normal visualized bilateral faucial tonsils. The visualized tongue, tongue base and oropharynx are normal. The visualized cervical lymph nodes (levels I-) are within normal size limits, and maintain normal morphology. There is no demonstrated solid or cystic mass lesion. There is no abnormal contrast enhancement. Normal epiglottis, bilateral vallecula and hypopharynx. The pre-epiglottic and paraglottic adipose spaces are normal. Normal visualized bilateral piriform sinuses, aryepiglottic folds, vocal cords, and arytenoid-cricoid articulations. Normal subglottic trachea. Normal bilateral lobes of the thyroid gland. Normal visualized pulmonary apices. Normal visualized paranasal sinuses. Normal visualized cervical spine. CT/Soft Tissue Neck WITH Contrast IMPRESSION: Normal enhanced CT examination of the soft tissues of the neck. Electronically Signed: Itz Caro MD at 15:24 EST ,
== END 2021-07-30 23:59 | disposition home or self-care (01) ==
PROVIDERS: PCP Family Medicine; Referring Provider Family Medicine; Visit Provider Family Medicine
DX: R22.2 Localized swelling, mass and lump, trunk (principal); R13.10 Dysphagia, unspecified
CPT/HCPCS: 70491; Q9967

== ENCOUNTER → 2021-10-01 09:44 | Outpatient (CLI) | payer MEDICAID, SELFPAY | PROVIDERS: PCP Family Medicine | DX: R76.8 Other specified abnormal immunological findings in serum (principal) | CPT/HCPCS: 36415 ==

== ENCOUNTER → 2021-11-13 | Outpatient (CLI) | payer MEDICAID, SELFPAY ==
--- NOTE | 2021-11-13 09:04 | MRI_ITS ---
STUDY: MRI LEFT REARFOOT WITHOUT CONTRAST REASON FOR EXAM: Female, 41 years old. LEFT HIND FOOT,PLANTAR FASCIITIS WITH HEEL SPUR TECHNIQUE: Standardized fat and water weighted pulse sequences were obtained in all 3 orthogonal planes. COMPARISON: None. FINDINGS: Normal subcutis adipose space. Mild tendinopathy of the distal tibialis posterior. Normal flexor digitorum longus tendon. Proximal to the medial malleolus there is moderate tenosynovitis of the flexor hallucis tendon. Distally the flexor hallucis tendon appears intact. Normal peroneus longus and brevis tendons. Normal tibialis anterior tendon. Normal extensor hallucis longus tendon. Normal extensor digitorum longus tendons. Normal Achilles tendon and teno-osseous insertion. There is mild posterior and plantar calcaneal spurring. There is moderate thickening and intermediate signal intensity at the origin of the plantar fascia consistent with proximal plantar fascia right wrist. Normal distal tibiofibular syndesmotic ligamentous complex. Normal lateral ligamentous complex. Normal subtalar ligaments and sinus tarsi. Normal deltoid ligamentous complexes. Normal plantar calcaneonavicular (spring) ligament. Normal tibiotalar articulation. Marrow edema superior medial talar dome 5 x 5 mm suspect early osteochondritis dissecans bazzi image series 4 image #9. Normal subtalar articulations. Normal talonavicular articulation. Normal calcaneocuboid articulation. Normal navicular-cuneiform articulations. MRI/Lower Ext/No Jt/w/o IMPRESSION: Moderate proximal plantar fasciitis. Mild posterior and plantar calcaneal spurring. Marrow edema superior medial talar dome 5 mm AP by 5 mm transverse question early osteochondritis dissecans. Tenosynovitis of the flexor hallucis tendon proximal to the medial malleolus. Tendinopathy of the distal tibialis posterior. Electronically Signed: Velasquez Baeza MD, DMITRI at 22:56 EDT ,
== END | disposition home or self-care (01) ==
LOC: MRI 08:52
PROVIDERS: PCP Family Medicine; Visit Provider Podiatrist
DX: M72.2 Plantar fascial fibromatosis (principal); M77.9 Enthesopathy, unspecified
CPT/HCPCS: 73718

== ENCOUNTER → 2022-01-04 | Outpatient (CLI) | payer MEDICAID, SELFPAY ==
[2022-01-04 11:30] LABS: Absolute Lymphocyte Count 2.97 X10^3/uL (0.83-4.51); Absolute Neutrophil Count 6.8 X10^3/uL (2.0-7.7); Basophil# 0.04 X10^3/uL; Basophil% 0.4 % (0-1); Eosinophil# 0.15 X10^3/uL; Eosinophils% 1.4 % (0-5); Hematocrit 39.6 % (37-47); Hemoglobin 13.2 g/dL (12.0-15.0); Lymphocyte # 2.97 X10^3/ul (0.83-4.51); Lymphocyte % 27.9 % (19-41); Mean Corp Hgb Conc 33.3 g/dL (32-36); Mean Corpuscular Hgb 29.5 pg (27.0-32.0); Mean Corpuscular Volume 88.4 fL (81-99); Mean Platelet Vol. 9.5 fl (6.2-12.0); Monocyte# 0.63 X10^3/uL; Monocyte% 5.9 % (0-10); NRBC Flagged by Analyzer 0 % (0-5); Neutrophil # 6.77 X10^3/uL (2.7-7.7); Neutrophil % 63.7 % (47-70); Platelet Count 378 K/mm3 (150-450); RBC Distribution Width CV 13.1 % (11.6-14.6); RBC Distribution Width SD 42.5 fl (35.1-43.9); Red Blood Count 4.48 M/mm3 (4.2-5.4); White Blood Count 10.6 K/mm3 (4.4-11.0)
[2022-01-04 12:07] LABS: AST(SGOT) 18 U/L (15-37); Alanine Aminotransfer ALT/SGPT 25 U/L (13-56); Albumin, Serum 3.5 g/dL (3.2-5.0); Alkaline Phosphatase 73 U/L (45-117); Anion Gap 6 (5-15); BUN 4 mg/dL (7-18); BUN/Creat Ratio 5.9 RATIO (10-20); Calcium,Total 9.3 mg/dL (8.5-10.1); Chloride 102 mmol/L (98-107); Creatinine, Serum 0.68 mg/dL (0.55-1.02); EST Glomerular Filtration Rate 101 mL/min (>60); Est Glom Filt Rate - Afr Amer 122 mL/min (>60); Globulin 3.5 g/dL (2.2-4.2); Glucose 92 mg/dL (74-106); Potassium 3.8 mmol/L (3.5-5.1); Sodium Level 137 mmol/L (136-145); Uric Acid 4.6 mg/dL (2.6-6.0)
== END | disposition home or self-care (01) ==
LOC: LAB 10:52
PROVIDERS: PCP Family Medicine; Referring Provider Family Medicine; Visit Provider Family Medicine
DX: Z01.818 Encounter for other preprocedural examination (principal)
CPT/HCPCS: 36415; 80053; 84550; 85025

== ENCOUNTER 2022-03-18 06:07 | Day surgery (SDC) | payer MEDICAID, SELFPAY ==
--- NOTE | 2022-03-18 06:30 | RAD_ITS ---
STUDY: X-RAY - LEFT FOOT CLINICAL: Female, 42 years old. PAIN -- calcaneal bone spur, left fasciotomy TECHNIQUE: 2 view(s) of the foot. COMPARISON: None. FINDINGS: Intraoperative imaging provided for resection of the plantar spur. RAD/Foot 2 Views IMPRESSION: Intraoperative images are provided for resection of the plantar spur. Electronically Signed: Itz Caro MD at 15:26 EDT ,
[2022-03-18 06:40] VITALS: BP 105/83; PULSE 83; RESP 18; TEMP 36.4; O2SAT 94; BMI 37.4
[2022-03-18] MEDS: Lactated Ringers 1,000 ML 15 ML IV (06:48)
[2022-03-18] MEDS: Clindamycin 900 MG/50 ML BAG 75 MG IV (07:18)
--- NOTE | 2022-03-18 08:20 | DCINST_ITS ---
Discharge Instructions Diet Discharge Diet: Light diet - advance as tolerated Activity Discharge Activity: May Not Drive Weight Bearing Status: No weight bearing (No weightbearing to left foot.) Keep extremity elevated above heart level: Left Leg (Keep left foot elevated for at least 50 minutes of every hour.) Dressing / Incision Call your doctor if your incision/area has: Continuous Slow Oozing, Sudden Increased Bleeding and Foul Smelling Discharge Call your doctor if you observe: Fever of 101 or Higher, Shortness of breath, Chest pain, Increased palpitations (irregular heartbeat), Calf discomfort and Uncontrolled pain Change Dressing in: do not change dressing Remove Dressing in: do not remove dressing Cleanse incision/area with: Do not get Incision Wet Follow Up Care Please Follow Up With: Arie Morris DPM When: [facility] within 1 week, sooner if needed. Office number: [phone] Pager: [phone] Test Results: Test results from this visit will be discussed in further detail at your follow- up appointment, if applicable. Discharge Plan Admission Attending Provider: Arie Morris Primary Care Provider: Velasquez Finley Discharge Orders/Prescriptions Prescriptions: New oxycodone-acetaminophen [Percocet] 5-325 mg tablet 1 - 2 tab PO Q6H PRN (Reason: pain) 4 Days Qty: 24 0RF No Action tizanidine 4 mg tablet 4 mg PO Q4H PRN PRN (Reason: Pain) buspirone 15 mg tablet 15 mg PO BID PRN PRN (Reason: Anxiety) Advair HFA 115-21 mcg/actuation HFA aerosol inhaler 1 puff INHALATION BID calcium carbonate-vitamin D3 600 mg-10 mcg (400 unit) tablet 1 tab PO DAILY cholecalciferol (vitamin D3) [Vitamin D3] 50 mcg (2,000 unit) capsule 2,000 mcg PO DAILY Referrals / Follow Up: Velasquez Finley DO [Primary Care Provider] - Disposition Disposition (needs filled in before D/C Order can be placed): Home, Self Care
--- NOTE | 2022-03-18 08:22 | PCM.OPRPT ---
Report of Operation Date of Procedure: 03/18/22 Pre-Operative Diagnosis: Plantar fasciitis, left Infracalcaneal spur, left Post-Operative Diagnosis: Same Surgery/Procedure Performed:: Plantar fasciotomy with resection of infracalcaneal spur, left Surgeon: Arie Morris administrative underwriter: Type of Anesthesia: General and Local Specimen's removed: None Estimated Blood Loss (mL): 1 mL Description of Procedure: Indications: This is a 42 year-old female who has chronic left plantar heel pain due to plantar fascia and infracalcaneal spur. Xrays and MRI have been obtained pre operatively and reviewed.? She would like to proceed with surgical intervention with procedures as noted above.?? The procedures were reviewed with her, as well as the goals, estimated recovery and the benefits vs risks with her.? All the consent forms were reviewed with her and she freely signed them. OPERATIVE PROCEDURE: The patient was brought back into the operating room and was in the supine position.? The patient received general anesthesia per the anesthesiologist.? After anesthesia was obtained, she was carefully placed in the supine position and a well-padded pneumatic tourniquet was applied around her left ankle.? A time-out was performed and the patient was properly identified and surgical plan was confirmed.? The patient did receive prophylactic antibiotics for this procedure, which was 900mg of Clindamycin intravenous.?The skin was prepped with 70% Isopropyl alcohol and a total of 20mL of 0.25% Bupivacaine was given as a local nerve block around the left heel. The left lower extremity was scrubbed, prepped and draped in the usual aseptic fashion. The left foot was elevated and exsanguinated using an Esmarch bandage and the left ankle pneumatic tourniquet was inflated to 250mmHg. Plantar Fasciotomy and resection of infracalcaneal spur: Attention was directed to the plantar fascia. A skin incision was made to the medial hindfoot at the level of the origin of the plantar fascia on the inferior calcaneus. Careful dissection was completed down through the subcutaneous tissue layer. A plane was created superiorly and inferiorly around the plantar fascia. There was significant thickening, tightness, and fibrosis of the plantar fascia consistent with chronic plantar fasciitis. The medial 50% of the plantar fascia was released via a plantar fasciotomy. The infracalcaneal spur was identified and was resected using a powered sagittal rasp, resection was confirmed using intraoperative fluoroscopy. The site was flushed out with copious amounts of normal saline solution. The skin was reapproximated using 3-0 Nylon. The pneumatic tourniquet was deflated and there was immediate return of warmth and perfusion to the left foot with normal temperature gradient (total tourniquet time was 30 minutes). Capillary fill time was less than three seconds.? A dressing was applied, which consisted of Betadine-soaked adaptic, 4 x 4 gauze, Kerlix, and Uday bandage. Of note all vital structures, including all vital neurovascular structures and tendon structures were properly identified, protected and retracted as necessary throughout the above operative procedure. The patient was transported from the operating room to the recovery room with vital signs stable and in good condition.? Postoperative orders were placed.? Post operative instructions have been reviewed with her. No weightbearing left foot. Keep left foot elevated. Keep dressing clean, dry and intact. Prescribed Percocet for pain control post op - this was discussed with her pre operative and she denied any allergy to this. Follow up with me next week, sooner if needed. Post operative foot xrays were obtained of the left foot which confirmed resection of infracalcaneal spur. Grafts/Implants Used: None Complications None
[2022-03-18 08:23] VITALS: BP 105/83; BP 116/80; PULSE 77; RESP 18; TEMP 37; O2SAT 95
[2022-03-18 08:30] VITALS: BP 105/83; BP 113/81; PULSE 68; RESP 18; O2SAT 92
--- NOTE | 2022-03-18 08:30 | RAD_ITS ---
STUDY: X-RAY - LEFT FOOT CLINICAL: Female, 42 years old. Post op TECHNIQUE: 3 view(s) of the foot. COMPARISON: None. FINDINGS: Status post resection of the plantar spur. Normal visualized subtalar, talonavicular, calcaneocuboid, tarsal and tarsometatarsal articulations. Normal metatarsi. Normal metatarsophalangeal joint of the great toe. Normal tibial and fibular sesamoid bones. Normal interphalangeal joint of the great toe. Normal phalanges of the great toe. Normal second through fifth metatarsophalangeal joints. Normal interphalangeal joints and phalanges of the lesser toes. Postoperative soft tissue changes. RAD/Foot min 3 Views IMPRESSION: Status post resection of the plantar spur. Electronically Signed: Itz Caro MD at 15:27 EDT ,
[2022-03-18 08:45] VITALS: BP 105/83; BP 112/81; PULSE 75; RESP 18; O2SAT 96
[2022-03-18 08:59] VITALS: BP 105/83; BP 110/54; PULSE 74; RESP 18; TEMP 36.3; O2SAT 98
[2022-03-18 10:06] VITALS: BP 105/83; BP 120/70; PULSE 68; RESP 16; TEMP 36.2; O2SAT 96
== END 2022-03-18 10:12 | disposition home or self-care (01) ==
LOC: SDC 06:07 → AC 06:11
PROVIDERS: PCP Family Medicine; Referring Provider Podiatrist; Visit Provider Podiatrist
PROC: (CPT 28119; principal; 2022-03-18 07:15)
DX: M72.2 Plantar fascial fibromatosis (principal); G89.29 Other chronic pain; M79.672 Pain in left foot; J45.909 Unspecified asthma, uncomplicated; G47.33 Obstructive sleep apnea (adult) (pediatric); E55.9 Vitamin D deficiency, unspecified; F17.210 Nicotine dependence, cigarettes, uncomplicated; R90.89 Other abnormal findings on diagnostic imaging of central nervous system
CPT/HCPCS: 28008; 28119; 01470; 73620; 73630; 76000; J7120; J2405

== ENCOUNTER → 2022-11-08 | Outpatient (CLI) | payer MEDICAID, SELFPAY ==
--- NOTE | 2022-11-08 10:45 | MRI_ITS ---
EXAM: MR LEFT LOWER EXTREMITY WITHOUT INTRAVENOUS CONTRAST, FOOT CLINICAL INDICATION: Plantar fascitis LEFT hind foot TECHNIQUE: Multiplanar and multisequence MR images of the left foot without intravenous contrast. COMPARISON: No relevant prior studies available. FINDINGS: LIGAMENTS: MEDIAL COLLATERAL: Unremarkable. Intact. LATERAL COLLATERAL: Unremarkable. Intact. LISFRANC: Unremarkable. Intact. TENDONS: FLEXOR: See below. EXTENSOR: Unremarkable. Intact. PERONEAL: Unremarkable. Intact. TIBIALIS ANTERIOR: Unremarkable. Intact. TIBIALIS POSTERIOR: Small amount of tenosynovial fluid about the posterior tibialis tendon and the flexor digitorum longus tendon. Tendons are intact otherwise. MUSCLES: Unremarkable. No edema or myositis. FLUID: At least a moderate amount of fluid about the flexor hallucis longus. PLANTAR FASCIA: Marked thickening of the central cord of plantar fascia with fluid signal adjacent and with small amount of reactive marrow edema involving the inferior calcaneus. BONES/JOINTS: No osteochondral lesions at the tibiotalar articulation. OTHER SOFT TISSUES: Unremarkable. OTHER FINDINGS: Severe atrophy of the abductor digiti minimi compatible with Perkins''s neuropathy. MRI/Lower Ext Joint Only (Routine) IMPRESSION: 1. Evidence of plantar fasciitis involving the central cord. 2. 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 3. Medial flexor tendon tenosynovitis, worse at the flexor hallux longus tendon. Electronically Signed: Andrei Butler MD at 21:56 EDT Reading Location ID and State: [facility] / [place] Tel , Service support ,
== END | disposition home or self-care (01) ==
LOC: MRI 10:15
PROVIDERS: PCP Family Medicine; Referring Provider Podiatrist; Visit Provider Podiatrist
DX: M72.2 Plantar fascial fibromatosis (principal)
CPT/HCPCS: 73721

== ENCOUNTER → 2024-02-12 | Outpatient (CLI) | payer MEDICAID, SELFPAY ==
[2024-02-12 10:17] LABS: Bacteria 0 SEEN /hpf (None Seen); Mucous, Urine 0 SEEN /hpf (<or=2+); Red Blood Cells-Urine 0 SEEN /hpf (0-5); White Blood Cells 0 SEEN /hpf (0-5)
[2024-02-12 10:44] LABS: Absolute Lymphocyte Count 2.58 X10^3/uL (0.83-4.51); Absolute Neutrophil Count 7.9 X10^3/uL (2.0-7.7); Basophil# 0.04 X10^3/uL; Basophil% 0.4 % (0-1); Eosinophil# 0.13 X10^3/uL; Eosinophils% 1.2 % (0-5); Hematocrit 40.5 % (37-47); Hemoglobin 13.5 g/dL (12.0-15.0); Lymphocyte # 2.58 X10^3/ul (0.83-4.51); Mean Corp Hgb Conc 33.3 g/dL (32-36); Mean Corpuscular Hgb 29.6 pg (27.0-32.0); Mean Corpuscular Volume 88.8 fL (81-99); Mean Platelet Vol. 9.4 fl (6.2-12.0); Monocyte% 4.5 % (0-10); NRBC Flagged by Analyzer 0 % (0-5); Neutrophil # 7.94 X10^3/uL (2.7-7.7); Neutrophil % 70.6 % (47-70); Platelet Count 349 K/mm3 (150-450); RBC Distribution Width CV 12.8 % (11.6-14.6); RBC Distribution Width SD 41.8 fl (35.1-43.9); Red Blood Count 4.56 M/mm3 (4.2-5.4); White Blood Count 11.2 K/mm3 (4.4-11.0)
[2024-02-12 10:53] LABS: Glucose, Dipstick Normal (Normal); Ketone-Dipstick 5 mg/dl (Negative); Leukocyte Esterase-Dipstick 25 /ul (Negative); Nitrite-Dipstick Negative (Negative); Occult Blood-Urine Negative /ul (Negative); Protein-Dipstick 15 mg/dl (Negative); Urine Bilirubin Dipstick Negative (Negative); Urine Urobilinogen 1 mg/dl (Normal)
[2024-02-12 11:03] LABS: Color, Urine YELLOW (Yellow); Urine Clarity Clear (Clear)
[2024-02-12 11:07] LABS: Amorphous Sediment 1+; Squamous Epithelial Cells - UA 0-5 SEEN /hpf (5-10)
[2024-02-12 12:10] LABS: ALB/GLOB Ratio 0.9 RATIO (0.9-2.4); AST(SGOT) 13 U/L (15-37); Alanine Aminotransfer ALT/SGPT 15 U/L (13-56); Albumin, Serum 3.2 g/dL (3.2-5.0); Alkaline Phosphatase 60 U/L (45-117); Anion Gap 5 (5-15); BUN 5 mg/dL (7-18); BUN/Creat Ratio 7.1 RATIO (10-20); CPK Total, Creatine Kinase 75 U/L (26-192); Calcium,Total 9.1 mg/dL (8.5-10.1); Chloride 108 mmol/L (98-107); Creatinine, Serum 0.71 mg/dL (0.55-1.02); EST Glomerular Filtration Rate 96 mL/min (>60); Est Glom Filt Rate - Afr Amer 116 mL/min (>60); Globulin 3.4 g/dL (2.2-4.2); Glucose 95 mg/dL (74-106); Potassium 4.1 mmol/L (3.5-5.1); Protein, Total 6.6 g/dL (6.4-8.2); Sodium Level 139 mmol/L (136-145)
[2024-02-13 15:09] LABS: ANTINUCLEAR ANTIBODIES DIRECT Negative (Negative); Anti-dsDNA Ab 4 IU/mL (0-9)
== END | disposition home or self-care (01) ==
LOC: LAB 10:00
PROVIDERS: PCP Family Medicine; Referring Provider Physician Assistant; Visit Provider Physician Assistant
DX: L30.9 Dermatitis, unspecified (principal)
CPT/HCPCS: 36415; 80053; 81001; 82550; 85025; 86038; 86225

== ENCOUNTER → 2024-03-05 | Outpatient (CLI) | payer MEDICAID, SELFPAY ==
[2024-03-11 11:08] LABS: Beef <0.10 kU/L (Class 0); Chocolate <0.10 kU/L (Class 0); Codfish <0.10 kU/L (Class 0); Corn <0.10 kU/L (Class 0); Egg, Whole <0.10 kU/L (Class 0); Milk (Cow) <0.10 kU/L (Class 0); Mussels <0.10 kU/L (Class 0); Peanut <0.10 kU/L (Class 0); Pork <0.10 kU/L (Class 0); Salmon <0.10 kU/L (Class 0); Shrimp <0.10 kU/L (Class 0); Soybean <0.10 kU/L (Class 0); Tuna <0.10 kU/L (Class 0); Wheat <0.10 kU/L (Class 0)
== END | disposition home or self-care (01) ==
PROVIDERS: PCP Family Medicine; Referring Provider Family Medicine; Visit Provider Family Medicine
DX: L27.2 Dermatitis due to ingested food (principal)
CPT/HCPCS: 36415; 86003; 86005

== ENCOUNTER → 2024-05-10 | Outpatient (CLI) | payer MEDICAID, SELFPAY ==
[2024-05-10 13:02] LABS: T4 Free Direct 0.91 ng/dL (0.76-1.46); Thyroid Stim Hormone (TSH) 0.803 uIU/mL (0.358-3.740)
== END | disposition home or self-care (01) ==
LOC: BFHLAB 10:55
PROVIDERS: PCP Family Medicine; Referring Provider Family Medicine; Visit Provider Family Medicine
DX: E01.0 Iodine-deficiency related diffuse (endemic) goiter (principal)
CPT/HCPCS: 36415; 84439; 84443

== ENCOUNTER → 2024-05-22 | Outpatient (CLI) | payer MEDICAID, SELFPAY ==
--- NOTE | 2024-05-22 11:48 | US_ITS ---
STUDY: THYROID ULTRASOUND REASON FOR EXAM: Female, 44 years old. THYROMEGALY TECHNIQUE: Ultrasound evaluation of the thyroid was performed with real-time and static liu-scale imaging. COMPARISON: CT neck from 07/30/2021 FINDINGS: RIGHT LOBE: The right lobe of the thyroid gland measures 5.4 x 1.7 x 1.8 cm. There is a heterogeneous echotexture. There is a upper pole cyst measuring 0.4 x 0.4 x 0.3 cm. No specific follow-up needed. There is a solid hypoechoic 0.4 x 0.4 x 0.3 cm nodule This nodule is solid or almost completely solid, hypoechoic, [id number], smoothly marginated and contains no echogenic foci. TI-RADS points: 4. TI-RADS category: TR4. This nodule is moderately suspicious but no FNA or follow-up is necessary given the small size of this nodule. LEFT LOBE: The left lobe of the thyroid gland measures 5.3 x 1.9 x 1.9 cm. There is a heterogeneous echotexture. There is a 0.4 x 0.3 x 0.2 cm cyst. No specific follow-up needed. ISTHMUS: The isthmus measures 0.2 there is a hypoechoic solid right isthmus nodule measuring 0.5 x 0.4 x 0.3 cm. This nodule is solid or almost completely solid, hypoechoic, [id number]-[id number], smoothly marginated and contains no echogenic foci. TI-RADS points: 4. TI-RADS category: TR4. This nodule is moderately suspicious but no FNA or follow-up is necessary given the small size of this nodule. The regional lymph nodes are normal. US/Thyroid IMPRESSION: Enlarged heterogeneous thyroid gland with simple cysts which needs no specific follow-up and solid nodules in the right lobe isthmus. Categorization of these nodules and follow-up as listed above Electronically Signed: Giovani Lo MD at 8:35 EST ,
--- NOTE | 2024-05-22 13:04 | BI_ITS ---
MAMMOGRAPHY - BILATERAL SCREENING REASON FOR EXAM: Female, 44 years old. Routine annual screening examination. PERTINENT HISTORY: Non-contributory. TECHNIQUE: Digital bilateral breast rishi (3D mammographic acquisition) in the CC and MLO projections. 2-D mediolateral oblique (MLO) and craniocaudad (CC) views of both breasts were obtained. CAD: Full Field Digital Mammography with Computer Added Detection was performed. COMPARISON: Comparison is made with prior outside examination dated May 20, 2022. FINDINGS: Breast Composition: The breasts are heterogeneously dense, which may obscure small masses. There are no dominant masses or suspicious calcifications. Stable small benign-appearing bilateral axillary lymph nodes. No other significant abnormalities are identified. There has been no significant change since the prior study. BI/SCRN MAMM (CAD)W/RISHI BILAT IMPRESSION: Stable bilateral screening mammogram. Yearly follow-up mammogram recommended. (A) ASSESSMENT CATEGORY: BIRADS Category 2: Benign. A letter regarding these results will be sent to the patient by the facility within 30 days. Approximately 10% of breast cancers are not detected by mammography. A normal mammogram should not delay biopsy of a clinically suspicious abnormality. [id number] Electronically Signed: Itz Caro MD at 14:11 EST ,
== END | disposition home or self-care (01) ==
LOC: US 11:47
PROVIDERS: PCP Family Medicine; Referring Provider Family Medicine; Visit Provider Family Medicine
DX: Z12.31 Encounter for screening mammogram for malignant neoplasm of breast (principal); E01.0 Iodine-deficiency related diffuse (endemic) goiter
CPT/HCPCS: 76536; 77063; 77067

== ENCOUNTER → 2024-06-05 | Outpatient (CLI) | payer MEDICAID, SELFPAY ==
--- NOTE | 2024-06-05 11:09 | NEURO ---
NCS and/or EMG Patient Report Ordering Doctor: Arie Morris DATE OF SERVICE: 06/05/24 Zohra presents with complaints of pain in both feet, worse on the left side. Electrodiagnostic findings: Right peroneal motor nerve demonstrates normal distal latency and amplitude with a drop in conduction greater than 20% across the fibular head. Left peroneal motor nerve demonstrates normal distal latency and amplitude with a drop approximately 20% across the fibular head. Normal tibial motor response bilaterally. Sensory responses are within normal limits. Normal H?reflux bilaterally. Normal tibial and peroneal F?waves. Needle EMG testing was performed in the lower limbs. All muscles tested showed no evidence of denervation with normal motor unit action potentials. Electrodiagnostic impression: This abnormal study in the lower limbs 1. Electrodiagnostic findings suggestive of a mild bilateral peroneal neuropathy, with conduction block across the fibular head. This is unlikely to account for the severe pain in the patient's feet. 2. No electrodiagnostic evidence for tarsal tunnel syndrome. 3. No EMG evidence for lumbar radiculopathy. Multi Select Codes Neurology Neurology Interp Codes: 05927-56 Musc test done w/n test comp (interp) (2) and 71705-63 Nrv cndj test 11-12 studies (interp)
== END | disposition home or self-care (01) ==
LOC: PSN 08:34
PROVIDERS: PCP Family Medicine; Referring Provider Podiatrist; Visit Provider Podiatrist
DX: G57.52 Tarsal tunnel syndrome, left lower limb (principal)
CPT/HCPCS: 95886; 95913

== ENCOUNTER → 2024-07-05 | Outpatient (CLI) | payer MEDICAID, SELFPAY ==
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
== END | disposition home or self-care (01) ==
PROVIDERS: PCP Family Medicine; Referring Provider Family Medicine; Visit Provider Family Medicine
DX: R13.10 Dysphagia, unspecified (principal)
CPT/HCPCS: 74230; 92611

== ENCOUNTER → 2024-07-11 | Outpatient (CLI) | payer MEDICAID, SELFPAY ==
[2024-07-11 15:36] LABS: Anion Gap 3 (5-15); BUN 6 mg/dL (7-18); BUN/Creat Ratio 7.8 RATIO (10-20); Calcium,Total 10.1 mg/dL (8.5-10.1); Chloride 104 mmol/L (98-107); Creatinine, Serum 0.77 mg/dL (0.55-1.02); EST Glomerular Filtration Rate 87 mL/min (>60); Est Glom Filt Rate - Afr Amer 105 mL/min (>60); Glucose 101 mg/dL (74-106); Potassium 3.7 mmol/L (3.5-5.1); Sodium Level 136 mmol/L (136-145)
[2024-07-11 16:44] LABS: Hemoglobin A1c 5.2 % (3.8-5.6)
[2024-07-16 15:08] LABS: Acetylcholine Receptor Binding < 0.03 nmol/L (0.00-0.24)
== END | disposition home or self-care (01) ==
PROVIDERS: PCP Family Medicine; Referring Provider Family Medicine; Visit Provider Family Medicine
DX: R53.1 Weakness (principal); R13.10 Dysphagia, unspecified; R40.4 Transient alteration of awareness
CPT/HCPCS: 36415; 80048; 83036; 84238

== ENCOUNTER → 2024-08-15 | Outpatient (CLI) | payer MEDICAID, SELFPAY ==
[2024-08-15 15:12] LABS: Erythrocyte Sedimentation Rate 15 mm/hr (0-30)
[2024-08-15 19:09] LABS: CRP 3.98 mg/L (0.0-3.0); Magnesium 2.3 mg/dL (1.5-2.2)
[2024-08-20 16:08] LABS: Albumin 3.4 g/dL (2.9-4.4); Alpha-1-Globulins 0.3 g/dL (0.0-0.4); Alpha-2-Globulins 0.9 g/dL (0.4-1.0); Free Kappa Light Chains 14.9 mg/L (3.3-19.4); Free Lambda Light Chains 16.1 mg/L (5.7-26.3); Gamma Globulin 0.8 g/dL (0.4-1.8); Immunoglobulin A 134 mg/dL (87-352); Immunoglobulin G 845 mg/dL (586-1602); Immunoglobulin M 164 mg/dL (26-217); PROEL- TOTAL PROTEIN 6.5 g/dL (6.0-8.5)
== END | disposition home or self-care (01) ==
LOC: MTLAB 12:40
PROVIDERS: PCP Family Medicine
DX: G58.7 Mononeuritis multiplex (principal)
CPT/HCPCS: 36415; 82784; 83735; 83883; 84165; 85652; 86140; 86334

== ENCOUNTER → 2024-09-16 | Outpatient (CLI) | payer MEDICAID, SELFPAY ==
--- NOTE | 2024-09-16 08:33 | MRI_ITS ---
EXAM: MRI lumbar spine without contrast CLINICAL HISTORY: Back pain COMPARISON: None TECHNIQUE: Multiplanar multisequence MRI of the lumbar spine without contrast. FINDINGS: There is normal lumbar lordosis. The lumbar vertebral bodies are normal in height. No evidence of compression fracture. Alignment is normal. No listhesis. L5 osseous hemangioma. The bone marrow signal is unremarkable. There is no abnormal bone STIR signal. The included distal thoracic cord is normal in caliber and signal. The conus medullaris terminates at L1 level. There is no clumping of the nerve roots. T12/L1: No canal stenosis or neural foraminal narrowing. L1/2: No significant canal stenosis or neural foraminal narrowing.. L2/3: Tiny disc protrusion and minimal facet degenerative changes with flattening of the ventral thecal sac. No canal stenosis or significant neural foraminal narrowing.. L3/4: Small circumferential disc bulge and facet degenerative changes with mild canal stenosis. Neural foramen are patent.. L4/5: Disc bulge asymmetric to the left, [id number]-right facet degenerative changes and mild ligamentum flavum hypertrophy with mild canal stenosis. Mild left subarticular recess narrowing. Mild bilateral neural foraminal narrowing.. L5/S1: Tiny disc protrusion hfnj-sughvdp-iuvn-right facet degenerative changes without significant canal stenosis. 6 mm left synovial cyst. Neural foramen are patent.. The visualized prevertebral and paraspinal soft tissues are unremarkable. Partially imaged bilateral simple renal cysts. MRI/Spine Lumbar (Routine) IMPRESSION: 1. No acute fracture or traumatic subluxation. 2. Multilevel degenerative changes most prominent at L3-L4 and L4-L5 with mild canal stenosis and neural foraminal narrowing. 3. Mild left subarticular recess narrowing at L4-L5. Reading Location: [facility]
== END | disposition home or self-care (01) ==
LOC: MRI 10:24
PROVIDERS: PCP Family Medicine
DX: G58.7 Mononeuritis multiplex (principal); G89.29 Other chronic pain; M51.369 Other intervertebral disc degeneration, lumbar region without mention of lumbar back pain or lower extremity pain; M54.40 Lumbago with sciatica, unspecified side
CPT/HCPCS: 72148

== ENCOUNTER 2024-10-14 06:32 | Day surgery (SDC) | payer MEDICAID, SELFPAY ==
[2024-10-14 06:46] VITALS: BP 124/81; PULSE 78; RESP 16; TEMP 36.1; O2SAT 98; BMI 29.0
--- NOTE | 2024-10-14 06:57 | PCM.PRE.AN2 ---
ASA Classification* ASA Classification ASA Classification: 2 Assessment & Plan Anesthesia* Anesthesia Assessment Anesthesia Assessment: Discussed sedation and/or anesthesia options, risks, benefits, and alternatives with patient/parents/legal guardian/POA. Questions invited. The patient/parents/legal guardian/POA seems to understand and agrees to proceed with anesthesia plan. Reviewed the physical assessment, medical history, allergy history and patient home medications list prior to surgery/procedure/anesthetic and documented any changes. Performed airway and anesthesia risk assessments. Anesthesia Type Anesthesia Type: MAC Anesthesia Focused Assessment* Airway Assessment Mouth opens: >3 cm Mallampati Score: II Focused Labs Anesthesia Preop lab: CBC WBC 11.2 K/mm3 (4.4-11.0) H 02/12/24 10:13 02/12/24 RBC 4.56 M/mm3 (4.2-5.4) 02/12/24 10:13 02/12/24 Hgb 13.5 g/dL (12.0-15.0) 02/12/24 10:13 02/12/24 Hct 40.5 % (37-47) 02/12/24 10:13 02/12/24 Plt Count 349 K/mm3 (150-450) 02/12/24 10:13 02/12/24 CHEMISTRY Potassium 3.7 mmol/L (3.5-5.1) 07/11/24 11:38 07/11/24 Sodium 136 mmol/L (136-145) 07/11/24 11:38 07/11/24 Magnesium 2.3 mg/dL (1.5-2.2) H 08/15/24 12:42 08/15/24 BUN 6 mg/dL (7-18) L 07/11/24 11:38 07/11/24 Creatinine 0.77 mg/dL (0.55-1.02) 07/11/24 11:38 07/11/24 Glucose 101 mg/dL (74-106) 07/11/24 11:38 07/11/24 TSH 0.803 uIU/mL (0.358-3.740) 05/10/24 10:56 05/10/24 COAG Urine Test Negative Negative 11/01/18 07:36 11/01/18 Pre-Assessment Diagnosis/Proposed Procedure Planned Operative Procedure(s): EGD COLONOSCOPY Anesthesia History 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 When Was Last Pacemaker Check QUESTION #4 FULL TEXT: You/Your Family Experience fever (hyperthermia) with Anesthesia Last Oral Intake Last Oral intake: Last Oral Intake NPO since Meds taken in AM with sips of water? 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 Female Yes 10/10/24 09:34 HX of Motion Sickness No 10/10/24 09:34 HX of N/V After Surgery No 10/10/24 09:34 Non-Smoker No 10/10/24 09:34 Duration of Surgery greater No 10/10/24 09:34 than 60 minutes Number of Risk Factors 1 10/10/24 09:34 PONV Score Low Risk 10/10/24 09:34 Height & Weight Height & Weight: Anesthesia: Height & Weight Height 5 ft 2.5 in 08/15/24 11:00 Respiratory Assessment Respiratory Assessment - forest nursery supervisor: Respiratory Tract Infection Hx - forest nursery supervisor Hx Respiratory Tract Infection No 10/10/24 09:34 STOP Sleep Apnea STOP Sleep Apnea - forest nursery supervisor: STOP Sleep Apnea - forest nursery supervisor Hx Hypertension No 10/10/24 09:34 Hx Sleep Apnea Yes 10/10/24 09:34 CPAP Yes: DOESNT WEAR 10/10/24 09:34 BIPAP No 10/10/24 09:34 Do you snore loudly (louder than talking or can be heard Do you often feel tired/ fatigued/ sleepy during daytime? Has anyone observed you stop breathing during sleep? STOP Results Positive 10/10/24 09:34 QUESTION #5 FULL TEXT : Do you snore loudly (louder than talking or can be heard through closed doors)? 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 Specify any problems Hx of Preganancy in last 3 No 10/10/24 09:34 Months Nurse Filling Out Transfusion VLEHMAN 10/10/24 09:34 & Questions: Date: 10/10/24 10/10/24 09:34 Time: 09:46 10/10/24 09:34 Patient unable to answer at this time (ie. confused, unrespo /Reproduction History /Reproductive History - forest nursery supervisor: /Reproductive Hx- forest nursery supervisor Hx Now No 10/10/24 09:34 Gestational Age (in weeks): EDC: Hx Hx Para Hx Section SAB No 10/10/24 09:34 Active Medications Active Medications: Current Medications Generic Name Dose Route Start Last Admin Trade Name Freq PRN Reason Stop Dose Admin Lactated Ringer's 1,000 mls @ 15 mls/hr 10/14/24 06:45 IV .Q48H CHRISTIAN PFSH Medical History Alcohol use Thyroid disease Lupus (systemic lupus erythematosus) Arthritis Bladder disease Excessive bleeding Injury of head and neck Difficulty swallowing Gastric reflux Smoker Hoarseness Plantar fasciitis Wears glasses Anxiety Marijuana use Rash Arthritis Easy bruising Restless legs Blackout Smoker Sleep apnea Leg cramps Lupus History of edema History of pain when walking COPD (chronic obstructive pulmonary disease) Cervical dysplasia Near sighted tremors Migraines Seasonal allergies History of alcohol abuse Fibromyalgia Chronic lumbar pain NARAYANAN (dyspnea on exertion) Tobacco abuse Panic disorder Vitamin D deficiency Abnormal pulmonary function test Skin lesions Acute pharyngitis Chronic cough 2 cmganglion cyst dorsum right wrist by index and long finge Lateral epicondylitis Left knee pain Eczema Chondromalacia, patella Chronic bronchitis Obesity Asthma Fatigue Hypersomnia ISIAH (obstructive sleep apnea) Home Medications ?Medication ?Instructions ?Recorded ?Last Taken ?Type buspirone 15 mg tablet 15 mg PO BID PRN PRN Anxiety 03/11/22 10/14/24 History calcium 600 mg (as 1 tab PO DAILY 03/11/22 03/17/22 History carbonate)-vitamin D3 10 mcg (400 unit) tablet cholecalciferol (vitamin D3) 50 2,000 mcg PO DAILY 03/11/22 03/17/22 History mcg (2,000 unit) capsule (Vitamin D3) fluticasone propionate 115 1 puff inhalation BID 03/11/22 03/17/22 History mcg-salmeterol 21 mcg/actuation HFA inhaler (Advair HFA) tizanidine 4 mg tablet 4 mg PO Q4H PRN PRN Pain 03/11/22 03/17/22 History albuterol sulfate 90 mcg/actuation 2 puff inhalation Q6H PRN 07/30/24 Unknown History aerosol inhaler (Ventolin HFA) shortness of breath or wheezing celecoxib 100 mg capsule 100 mg PO BID 07/30/24 Unknown History apple cider vinegar 600 mg capsule 450 mg PO BID 08/01/24 Unknown History norethindrone (contraceptive) 0.35 0.35 mg PO QDAY 08/15/24 Unknown History mg tablet pregabalin 75 mg capsule 75 mg PO TID 08/15/24 10/14/24 History pantoprazole 40 mg tablet,delayed 40 mg PO BID #60 tabs 09/25/24 Unknown Rx release Allergy/AdvReac Type Severity Reaction Status Date / Time amoxicillin (From Augmentin) Allergy Anaphylaxis Verified 10/14/24 06:44 clavulanic acid (From Allergy Anaphylaxis Verified 10/14/24 06:44 Augmentin) hydrocodone Allergy Itching Verified 10/14/24 06:44 hydrocodone bitartrate (From Allergy Itching Verified 10/14/24 06:44 Vicodin) hydroxychloroquine (From Allergy PT UNSURE Verified 10/10/24 09:28 Plaquenil) OF REACTION Penicillins Allergy Rash Verified 10/14/24 06:44 cephalexin monohydrate (From AdvReac Other Verified 10/14/24 06:44 Keflex) diclofenac AdvReac Other Verified 10/14/24 06:44 Family History Brother Hypertension Mother Hypertension Ovarian cancer Diabetes Arthritis Father Asthma Brother Paranoid schizophrenia Son ADHD PTSD (post-traumatic stress disorder) Severe bipolar disorder ODD Father Heart disease Surgical History History of loop electrical excision procedure (LEEP) Hx of tubal ligation H/O excision of ganglion cyst Cervical procedures for precancerous cells Social History Smoking Status: Current every day smoker tobacco type: cigarettes Tobacco: How many years used: 17 second hand exposure: Yes alcohol intake: former substance use type: does not use Review of Systems (Anesthesia) ROS Narrative System reviewed and no additional complaints, except as documented.
[2024-10-14] MEDS: Lactated Ringers 1,000 ML 15 ML IV (06:58)
[2024-10-14 07:11] VITALS: BP 124/81; PULSE 78; RESP 16; TEMP 36.1; O2SAT 98
--- NOTE | 2024-10-14 07:11 | PCM.PRE.AN2 ---
ASA Classification* ASA Classification ASA Classification: 2 Assessment & Plan Anesthesia* Anesthesia Assessment Anesthesia Assessment: Discussed sedation and/or anesthesia options, risks, benefits, and alternatives with patient/parents/legal guardian/POA. Questions invited. The patient/parents/legal guardian/POA seems to understand and agrees to proceed with anesthesia plan. Reviewed the physical assessment, medical history, allergy history and patient home medications list prior to surgery/procedure/anesthetic and documented any changes. Performed airway and anesthesia risk assessments. Anesthesia Type Anesthesia Type: MAC Anesthesia Focused Assessment* Temperature: 97.0 F Pulse Rate: 78 Blood Pressure: 124/81 Respiratory Rate: 16 Pulse Ox: 98 Airway Assessment Mouth opens: >3 cm Mallampati Score: II Focused Labs Anesthesia Preop lab: CBC WBC 11.2 K/mm3 (4.4-11.0) H 02/12/24 10:13 02/12/24 RBC 4.56 M/mm3 (4.2-5.4) 02/12/24 10:13 02/12/24 Hgb 13.5 g/dL (12.0-15.0) 02/12/24 10:13 02/12/24 Hct 40.5 % (37-47) 02/12/24 10:13 02/12/24 Plt Count 349 K/mm3 (150-450) 02/12/24 10:13 02/12/24 CHEMISTRY Potassium 3.7 mmol/L (3.5-5.1) 07/11/24 11:38 07/11/24 Sodium 136 mmol/L (136-145) 07/11/24 11:38 07/11/24 Magnesium 2.3 mg/dL (1.5-2.2) H 08/15/24 12:42 08/15/24 BUN 6 mg/dL (7-18) L 07/11/24 11:38 07/11/24 Creatinine 0.77 mg/dL (0.55-1.02) 07/11/24 11:38 07/11/24 Glucose 101 mg/dL (74-106) 07/11/24 11:38 07/11/24 TSH 0.803 uIU/mL (0.358-3.740) 05/10/24 10:56 05/10/24 COAG Urine Test Negative Negative 11/01/18 07:36 11/01/18 Pre-Assessment Diagnosis/Proposed Procedure Planned Operative Procedure(s): EGD COLONOSCOPY Anesthesia History 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 When Was Last Pacemaker Check QUESTION #4 FULL TEXT: You/Your Family Experience fever (hyperthermia) with Anesthesia Last Oral Intake Last Oral intake: Last Oral Intake NPO since 05:30 10/14/24 06:46 Meds taken in AM with sips of Yes 10/14/24 06:46 water? Meds patient instructed to see medlist 10/14/24 06:46 take am of surgery PONV PONV - solid waste analyst: PONV - solid waste analyst Female Yes 10/10/24 09:34 HX of Motion Sickness No 10/10/24 09:34 HX of N/V After Surgery No 10/10/24 09:34 Non-Smoker No 10/10/24 09:34 Duration of Surgery greater No 10/10/24 09:34 than 60 minutes Number of Risk Factors 1 10/10/24 09:34 PONV Score Low Risk 10/10/24 09:34 Height & Weight Height & Weight: Anesthesia: Height & Weight Height 5 ft 2.5 in 10/14/24 06:46 Weight: 73.3 kg 10/14/24 06:46 Body Mass Index (BMI) 29.0 10/14/24 06:46 Respiratory Assessment Respiratory Assessment - solid waste analyst: Respiratory Tract Infection Hx - solid waste analyst Hx Respiratory Tract Infection No 10/10/24 09:34 STOP Sleep Apnea STOP Sleep Apnea - solid waste analyst: STOP Sleep Apnea - solid waste analyst Hx Hypertension No 10/10/24 09:34 Hx Sleep Apnea Yes 10/10/24 09:34 CPAP Yes: DOESNT WEAR 10/10/24 09:34 BIPAP No 10/10/24 09:34 Do you snore loudly (louder than talking or can be heard Do you often feel tired/ fatigued/ sleepy during daytime? Has anyone observed you stop breathing during sleep? STOP Results Positive 10/10/24 09:34 QUESTION #5 FULL TEXT : Do you snore loudly (louder than talking or can be heard through closed doors)? 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 Specify any problems Hx of Preganancy in last 3 No 10/10/24 09:34 Months Nurse Filling Out Transfusion VLEHMAN 10/10/24 09:34 & Questions: Date: 10/10/24 10/10/24 09:34 Time: 09:46 10/10/24 09:34 Patient unable to answer at this time (ie. confused, unrespo /Reproduction History /Reproductive History - solid waste analyst: /Reproductive Hx- solid waste analyst Hx Now No 10/10/24 09:34 Gestational Age (in weeks): EDC: Hx Hx Para Hx Section SAB No 10/10/24 09:34 Active Medications Active Medications: Current Medications Generic Name Dose Route Start Last Admin Trade Name Freq PRN Reason Stop Dose Admin Lactated Ringer's 1,000 mls @ 15 mls/hr 10/14/24 06:45 10/14/24 06:58 IV 15 mls/hr .Q48H CHRISTIAN Administration PFSH Medical History Alcohol use Thyroid disease Lupus (systemic lupus erythematosus) Arthritis Bladder disease Excessive bleeding Injury of head and neck Difficulty swallowing Gastric reflux Smoker Hoarseness Plantar fasciitis Wears glasses Anxiety Marijuana use Rash Arthritis Easy bruising Restless legs Blackout Smoker Sleep apnea Leg cramps Lupus History of edema History of pain when walking COPD (chronic obstructive pulmonary disease) Cervical dysplasia Near sighted tremors Migraines Seasonal allergies History of alcohol abuse Fibromyalgia Chronic lumbar pain NARAYANAN (dyspnea on exertion) Tobacco abuse Panic disorder Vitamin D deficiency Abnormal pulmonary function test Skin lesions Acute pharyngitis Chronic cough 2 cmganglion cyst dorsum right wrist by index and long finge Lateral epicondylitis Left knee pain Eczema Chondromalacia, patella Chronic bronchitis Obesity Asthma Fatigue Hypersomnia ISIAH (obstructive sleep apnea) Home Medications ?Medication ?Instructions ?Recorded ?Last Taken ?Type buspirone 15 mg tablet 15 mg PO BID PRN PRN Anxiety 03/11/22 10/14/24 History calcium 600 mg (as 1 tab PO DAILY 03/11/22 03/17/22 History carbonate)-vitamin D3 10 mcg (400 unit) tablet cholecalciferol (vitamin D3) 50 2,000 mcg PO DAILY 03/11/22 03/17/22 History mcg (2,000 unit) capsule (Vitamin D3) fluticasone propionate 115 1 puff inhalation BID 03/11/22 03/17/22 History mcg-salmeterol 21 mcg/actuation HFA inhaler (Advair HFA) tizanidine 4 mg tablet 4 mg PO Q4H PRN PRN Pain 03/11/22 03/17/22 History albuterol sulfate 90 mcg/actuation 2 puff inhalation Q6H PRN 07/30/24 Unknown History aerosol inhaler (Ventolin HFA) shortness of breath or wheezing celecoxib 100 mg capsule 100 mg PO BID 07/30/24 Unknown History apple cider vinegar 600 mg capsule 450 mg PO BID 08/01/24 Unknown History norethindrone (contraceptive) 0.35 0.35 mg PO QDAY 08/15/24 Unknown History mg tablet pregabalin 75 mg capsule 75 mg PO TID 08/15/24 10/14/24 History pantoprazole 40 mg tablet,delayed 40 mg PO BID #60 tabs 09/25/24 Unknown Rx release Allergy/AdvReac Type Severity Reaction Status Date / Time amoxicillin (From Augmentin) Allergy Anaphylaxis Verified 10/14/24 06:44 clavulanic acid (From Allergy Anaphylaxis Verified 10/14/24 06:44 Augmentin) hydrocodone Allergy Itching Verified 10/14/24 06:44 hydrocodone bitartrate (From Allergy Itching Verified 10/14/24 06:44 Vicodin) hydroxychloroquine (From Allergy PT UNSURE Verified 10/10/24 09:28 Plaquenil) OF REACTION Penicillins Allergy Rash Verified 10/14/24 06:44 cephalexin monohydrate (From AdvReac Other Verified 10/14/24 06:44 Keflex) diclofenac AdvReac Other Verified 10/14/24 06:44 Family History Brother Hypertension Mother Hypertension Ovarian cancer Diabetes Arthritis Father Asthma Brother Paranoid schizophrenia Son ADHD PTSD (post-traumatic stress disorder) Severe bipolar disorder ODD Father Heart disease Surgical History History of loop electrical excision procedure (LEEP) Hx of tubal ligation H/O excision of ganglion cyst Cervical procedures for precancerous cells Social History Smoking Status: Current every day smoker tobacco type: cigarettes Tobacco: How many years used: 17 second hand exposure: Yes alcohol intake: former substance use type: does not use Review of Systems (Anesthesia) ROS Narrative System reviewed and no additional complaints, except as documented.
--- NOTE | 2024-10-14 07:30 | EGD_PTH ---
PATIENT: RICARDO HYATT LOC: EN U#:[id number] AGE/SX: 44/F ROOM: RE10/14/[address]: Dr. Rayo Brannon DO : 1980 BED: DIS: 10/14/2024 SPEC #: [id number] RECD: 10/14/24 11:16 STATUS: REBEKAH FREDO #: [id number] SLAVA: 10/14/24 07:[address]: Rayo Brannon DEPT: SURGICAL PATHOLOGY RECD BY: Charlie Styles ENTERED: 10/14/24 11:16 SP TYPE: EGD BIOPSY AIRAM DR: Dr. Velasquez Finley DO Tissues: A - Esophagus, NOS B - Gastric mucous membrane C - Duodenum, NOS D - COLON BIOPSY E - Ileum, NOS F - COLON BIOPSY Procedures: Surgery Specimen Level IV HEADER OPERATION: Colonoscopy with polypectomy and biopsy, EGD with biopsy PRE-OP DIAGNOSIS: Dysphagia, change in bowel habits, polyp TISSUE SUBMITTED: A- Distal esophagus biopsy, B- Gastric body biopsy, C- Duodenum biopsy, D- Hepatic flexure polyp, E- Terminal ileum biopsy, F- Splenic flexure polyp MICROSCOPIC DIAGNOSIS A. Esophagus, distal, biopsy: Columnar mucosa negative for goblet cell metaplasia. Squamous mucosa with reactive changes. B. Stomach, gastric body, biopsy: Oxyntic mucosa with no specific pathologic change. Negative for Helicobacter-like organisms (H&E). C. Small bowel, duodenum, biopsy: Normal villous architecture with Mode gland hyperplasia. Negative for increased intraepithelial lymphocytes. D. Colon, hepatic flexure, polyp, biopsy: Tubular adenoma. E. Small bowel, terminal ileum, biopsy: Normal villous architecture with no specific pathologic change. F. Colon, splenic flexure, polyp, biopsy: Tubular adenoma, multiple fragments. MICROSCOPIC DESCRIPTION Slides are reviewed. GROSS DESCRIPTION A. Received in formalin in a container labeled with the patient's name, date of , and distal esophagus biopsy are 2 mitchell-pink fragments of mucosal tissue each measuring 0.3 x 0.3 x 0.2 cm. Submitted in toto in A1. B. Received in formalin in a container labeled with the patient's name, date of , and gastric body biopsy are multiple mitchell-pink fragments of mucosal tissue measuring 0.9 x 0.6 x 0.2 cm. Submitted in toto in B1. C. Received in formalin in a container labeled with the patient's name, date of , and duodenum biopsy are multiple mitchell-pink fragments of mucosal tissue measuring 1.0 x 0.6 x 0.2 cm in aggregate. Submitted in toto in C1. D. Received in formalin in a container labeled with the patient's name, date of , and hepatic flexure polyp are multiple small mitchell-pink fragments of mucosal tissue measuring 0.6 x 0.5 x 0.2 cm in aggregate. Submitted in toto in D1. E. Received in formalin in a container labeled with the patient's name, date of , and terminal ileum biopsy are 2 mitchell-pink fragments of mucosal tissue measuring 0.3 x 0.2 x 0.2 cm and 0.4 x 0.4 x 0.2 cm. Submitted in toto in E1. F. Received in formalin in a container labeled with the patient's name, date of , and splenic flexure polyp are multiple mitchell-pink fragments of mucosal tissue measuring 1.2 x 0.5 x 0.2 cm in aggregate. Submitted in toto in F1. [facility] 10-14-2024 CPT:57565u0
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
[2024-10-14 08:25] VITALS: BP 117/86; BP 124/81; PULSE 76; RESP 16; TEMP 36.2; O2SAT 100
--- NOTE | 2024-10-14 08:29 | PCM.POST.ANE ---
Anesthesia: Postop Eval I Current Vital Signs Temperature: 97.1 F Pulse Rate: 88 Blood Pressure: 117/86 Respiratory Rate: 16 Pulse Ox: 100 Oxygen Delivery Method: Room Air Assessment Airway patent: Yes Spontaneous unlabored respirations: Yes Mental status: Asleep nausea: No Vomiting: No Anesthesia Complication: No Fluid Hydration Crystalloid volume administer (ml): 900 Total IV fluid infused: 900 Progress Note Anesthesia document: Postop Eval 1 completed: Yes
[2024-10-14 08:30] VITALS: BP 117/86; BP 124/81; BP 128/84; PULSE 76; PULSE 88; RESP 16; TEMP 36.2; O2SAT 100
--- NOTE | 2024-10-14 08:30 | OP.EGD_ITS ---
Patient Name: Zohra Zamora Procedure Date: 10/14/2024 7:40 AM Date of : 1980 Age: 44 Procedure: Upper GI endoscopy Indications: Epigastric abdominal pain, Dyspepsia, Indigestion, Dysphagia Providers: Rayo Brannon DO Referring MD: Velasquez Finley Medicines: Monitored Anesthesia Care Patient Profile: This is a 44 year old female. Refer to note in patient chart for documentation of history and physical. Patient has symptoms of chronic abdominal cramping, chronic abdominal distention, acute epigastric abdominal pain, chronic dysphagia and dysphagia with solids. Complications: No immediate complications. Procedure: Pre-Anesthesia Assessment: - Prior to the procedure, a History and Physical was performed, and patient medications and allergies were reviewed. The patient is competent. The risks and benefits of the procedure and the sedation options and risks were discussed with the patient. All questions were answered and informed consent was obtained. Patient identification and proposed procedure were verified in the pre-procedure area. Mental Status Examination: alert and oriented. Airway Examination: normal oropharyngeal airway and neck mobility. Respiratory Examination: clear to auscultation. CV Examination: normal. Prophylactic Antibiotics: The patient does not require prophylactic antibiotics. Prior Anticoagulants: The patient has taken no anticoagulant or antiplatelet agents except for NSAID medication. ASA Grade Assessment: II - A patient with mild systemic disease. After reviewing the risks and benefits, the patient was deemed in satisfactory condition to undergo the procedure. The anesthesia plan was to use monitored anesthesia care (MAC). Immediately prior to administration of medications, the patient was re-assessed for adequacy to receive sedatives. The heart rate, respiratory rate, oxygen saturations, blood pressure, adequacy of pulmonary ventilation, and response to care were monitored throughout the procedure. The physical status of the patient was re-assessed after the procedure. After obtaining informed consent, the endoscope was passed under direct vision. Throughout the procedure, the patient's blood pressure, pulse, and oxygen saturations were monitored continuously. The colonoscope was introduced through the mouth, and advanced to the third part of the duodenum. Small bowel enteroscopy was deemed necessary. The upper GI endoscopy was accomplished without difficulty. The patient tolerated the procedure well. Scope In: 7:50:23 AM Scope Out: 7:56:32 AM Total Procedure Duration Time 0 hours 6 minutes 9 seconds Findings: There were esophageal mucosal changes suspicious for short-segment Torres's esophagus present in the lower third of the esophagus. The maximum longitudinal extent of these mucosal changes was 3 cm in length. Mucosa was biopsied with a cold forceps for histology in a targeted manner at intervals of 1 cm in the lower third of the esophagus. One specimen bottle was sent to pathology. Verification of patient identification for the specimen was done. Estimated blood loss was minimal. A moderate Schatzki ring was found at the gastroesophageal junction. A guidewire was placed and the scope was withdrawn. Dilation was performed with a Savary dilator with no resistance at 57 Fr. Three non-bleeding superficial gastric ulcers with pigmented material were found in the gastric body. The largest lesion was 4 mm in largest dimension. Biopsies were taken with a cold forceps for histology. Verification of patient identification for the specimen was done. Estimated blood loss was minimal. Biopsies were taken with a cold forceps for Helicobacter pylori testing. Verification of patient identification for the specimen was done. Estimated blood loss was minimal. No gross lesions were noted in the entire examined duodenum. Biopsies were taken with a cold forceps for histology. Verification of patient identification for the specimen was done. Estimated blood loss was minimal. Impression: - Esophageal mucosal changes suspicious for short-segment Torres's esophagus. Biopsied. - Moderate Schatzki ring. Dilated. - Non-bleeding gastric ulcers with pigmented material. Biopsied. - No gross lesions in the entire examined duodenum. Biopsied. Recommendation: - Discharge patient to home. - Resume previous diet. - Continue present medications. - Await pathology results. Procedure Code(s): --- Professional --- 76225, Esophagogastroduodenoscopy, flexible, transoral; with insertion of guide wire followed by passage of dilator(s) through esophagus over guide wire 84945, 59,51, Small intestinal endoscopy, enteroscopy beyond second portion of duodenum, not including ileum; with biopsy, single or multiple CPT copyright 2021 [employer]. All rights reserved. The codes documented in this report are preliminary and upon non emergency services ambulance driver review may be revised to meet current compliance requirements. Rayo Brannon DO 10/14/2024 8:30:13 AM This report has been signed electronically. Number of Addenda: 0 Note Initiated On: 10/14/2024 7:40 AM
--- NOTE | 2024-10-14 08:30 | OP.CCLET_ITS ---
10/14/2024 Velasquez Finley [address] [place] [address] Re : Upper GI endoscopy procedure for [facility] Dear Dr. Finley This procedure was performed on Monday, October 14, 2024. My impressions and recommendations are as follows: Impressions : - Esophageal mucosal changes suspicious for short-segment Torres's esophagus. Biopsied. - Moderate Schatzki ring. Dilated. - Non-bleeding gastric ulcers with pigmented material. Biopsied. - No gross lesions in the entire examined duodenum. Biopsied. Recommendations : - Discharge patient to home. - Resume previous diet. - Continue present medications. - Await pathology results. My findings are described in the full procedure note, which is enclosed. If I can be of further assistance, please feel free to contact me at . Sincerely, Rayo Brannon, 10/14/2024 8:30:13 AM This report has been signed electronically.
--- NOTE | 2024-10-14 08:34 | OP.COLON_ITS ---
Patient Name: Zohra Zamora Procedure Date: 10/14/2024 7:56 AM Date of : 1980 Age: 44 Procedure: Colonoscopy Indications: Generalized abdominal pain, Change in bowel habits, Change in stool caliber, Functional diarrhea Providers: Rayo Brannon DO Referring MD: Velasquez Finley Medicines: Monitored Anesthesia Care Patient Profile: This is a 44 year old female. Refer to note in patient chart for documentation of history and physical. Patient has symptoms of chronic abdominal cramping, chronic abdominal distention, acute epigastric abdominal pain, chronic dysphagia and dysphagia with solids. Last Colonoscopy: none. The patient's first colonoscopy is today. Complications: No immediate complications. Procedure: Pre-Anesthesia Assessment: - Prior to the procedure, a History and Physical was performed, and patient medications and allergies were reviewed. The patient is competent. The risks and benefits of the procedure and the sedation options and risks were discussed with the patient. All questions were answered and informed consent was obtained. Patient identification and proposed procedure were verified in the pre-procedure area. Mental Status Examination: alert and oriented. Airway Examination: normal oropharyngeal airway and neck mobility. Respiratory Examination: clear to auscultation. CV Examination: normal. Prophylactic Antibiotics: The patient does not require prophylactic antibiotics. Prior Anticoagulants: The patient has taken no anticoagulant or antiplatelet agents except for NSAID medication. ASA Grade Assessment: II - A patient with mild systemic disease. After reviewing the risks and benefits, the patient was deemed in satisfactory condition to undergo the procedure. The anesthesia plan was to use monitored anesthesia care (MAC). Immediately prior to administration of medications, the patient was re-assessed for adequacy to receive sedatives. The heart rate, respiratory rate, oxygen saturations, blood pressure, adequacy of pulmonary ventilation, and response to care were monitored throughout the procedure. The physical status of the patient was re-assessed after the procedure. After I obtained informed consent, the scope was passed under direct vision. Throughout the procedure, the patient's blood pressure, pulse, and oxygen saturations were monitored continuously. The colonoscope was introduced through the anus and advanced to the terminal ileum. The colonoscopy was performed without difficulty. The patient tolerated the procedure well. The quality of the bowel preparation was adequate. The terminal ileum, ileocecal valve, appendiceal orifice, and rectum were photographed. Scope In: 7:59:10 AM Scope Withdrawal Time 0 hours 8 minutes 33 seconds Scope Out: 8:21:25 AM Total Procedure Duration Time 0 hours 22 minutes 15 seconds Findings: The perianal and digital rectal examinations were normal. Two sessile polyps were found in the splenic flexure and hepatic flexure. The polyps were 1 to 2 mm in size. These polyps were removed with a hot snare. Resection and retrieval were complete. Verification of patient identification for the specimen was done. Estimated blood loss was minimal. The colon (entire examined portion) was significantly tortuous. The terminal ileum appeared normal. Biopsies were taken with a cold forceps for histology. Verification of patient identification for the specimen was done. Estimated blood loss was minimal. Impression: - Two 1 to 2 mm polyps at the splenic flexure and at the hepatic flexure, removed with a hot snare. Resected and retrieved. - Tortuous colon. - The examined portion of the ileum was normal. Biopsied. Recommendation: - Discharge patient to home. - Resume previous diet. - Continue present medications. - Await pathology results. - Repeat colonoscopy in 5 years for surveillance. Procedure Code(s): --- Professional --- 83141, Colonoscopy, flexible; with removal of tumor(s), polyp(s), or other lesion(s) by snare technique 96019, 59, Colonoscopy, flexible; with biopsy, single or multiple CPT copyright 2021 [employer]. All rights reserved. The codes documented in this report are preliminary and upon teen counselor review may be revised to meet current compliance requirements. Rayo Brannon DO 10/14/2024 8:33:56 AM This report has been signed electronically. Number of Addenda: 0 Note Initiated On: 10/14/2024 7:56 AM
--- NOTE | 2024-10-14 08:34 | OP.CCLET_ITS ---
10/14/2024 Velasquez Finley [address] [place] [address] Re : Colonoscopy procedure for [facility] Dear Dr. Finley This procedure was performed on Monday, October 14, 2024. My impressions and recommendations are as follows: Impressions : - Two 1 to 2 mm polyps at the splenic flexure and at the hepatic flexure, removed with a hot snare. Resected and retrieved. - Tortuous colon. - The examined portion of the ileum was normal. Biopsied. Recommendations : - Discharge patient to home. - Resume previous diet. - Continue present medications. - Await pathology results. - Repeat colonoscopy in 5 years for surveillance. My findings are described in the full procedure note, which is enclosed. If I can be of further assistance, please feel free to contact me at . Sincerely, Rayo Brannon, 10/14/2024 8:33:56 AM This report has been signed electronically.
[2024-10-14 08:35] VITALS: BP 124/81; BP 128/84; PULSE 66; RESP 16; TEMP 36.7; O2SAT 100
[2024-10-14 08:47] VITALS: BP 124/81
--- NOTE | 2024-10-14 08:50 | PCM.POSTANE2 ---
Anesthesia Postop Eval I Sum Postop Eval Completion status Anesthesia document: Postop Eval 1 completed: Yes Anesthesia Postop Eval I Summary Anesthesia Postop Eval I Summary: Anesthesia Postop Eval I: Assessment Summary Airway patent Yes 10/14/24 08:30 [email or web address] Spontaneous unlabored Yes 10/14/24 08:30 [email or web address] respirations Mental status Asleep 10/14/24 08:30 [email or web address] nausea No 10/14/24 08:30 [email or web address] Vomiting No 10/14/24 08:30 [email or web address] Anesthesia Postop Eval I: Fluid Summary Crystalloid volume administer 900 10/14/24 08:30 [email or web address] (ml) Colloids volume administered ( ml) Blood Product volume administered (ml) Total IV fluid infused 900 10/14/24 08:30 [email or web address] Anesthesia Postop Eval I: Summary Notes Anesthesia Complication No 10/14/24 08:30 [email or web address] Anesthesia Complication Comment: Post-operative progress note Anesthesia: Postop Eval II Evaluation Mental status: Awake Pain Level: 0 nausea: No Vomiting: No
== END 2024-10-14 09:01 | disposition home or self-care (01) ==
LOC: EN 06:32 → AC 06:33
PROVIDERS: PCP Family Medicine; Referring Provider Family Medicine; Visit Provider Internal Medicine Gastroenterology
PROC: 0DJD8ZZ Inspection of Lower Intestinal Tract, Via Natural or Artificial Opening Endoscopic (ICD-10-PCS; CPT 45378; principal; 2024-10-14 07:25)
DX: K25.9 Gastric ulcer, unspecified as acute or chronic, without hemorrhage or perforation (principal); J44.9 Chronic obstructive pulmonary disease, unspecified; D12.3 Benign neoplasm of transverse colon; R13.10 Dysphagia, unspecified; Z79.51 Long term (current) use of inhaled steroids; M79.7 Fibromyalgia; R10.13 Epigastric pain; G47.33 Obstructive sleep apnea (adult) (pediatric); Z98.51 Tubal ligation status; F17.210 Nicotine dependence, cigarettes, uncomplicated
CPT/HCPCS: 43248; 45380; 45385; 88305; C1769; J2405

== ENCOUNTER 2024-11-10 12:56 | Emergency (ER) | payer MEDICAID, SELFPAY ==
[2024-11-10 12:57] VITALS: BP 134/88; PULSE 94; RESP 14; TEMP 35.5; O2SAT 99
[2024-11-10 13:10] VITALS: BMI 31.5
--- NOTE | 2024-11-10 13:39 | EX.ED.DYSGE1 ---
HPI <KAREN Baker - Last Filed: 11/10/24 18:09> History of Present Illness Chief Complaint: Weakness Narrative Narrative: Patient presenting today due to an episode of muscle spasms and cramping that started this afternoon. She reports that she has had similar episodes off and on in the past, this has been ongoing for a long time. She has been worked up by neurology for this. Today the spasms were worse, prompting her to come in to be evaluated. She denies fevers, chills, injury, chest pain, and abdominal pain. She is able to ambulate. [facility] <KAREN Baker - Last Filed: 11/10/24 18:09> [facility] Medical History Alcohol use Thyroid disease Lupus (systemic lupus erythematosus) Arthritis Bladder disease Excessive bleeding Injury of head and neck Difficulty swallowing Gastric reflux Smoker Hoarseness Plantar fasciitis Wears glasses Anxiety Marijuana use Rash Arthritis Easy bruising Restless legs Blackout Smoker Sleep apnea Leg cramps Lupus History of edema History of pain when walking COPD (chronic obstructive pulmonary disease) Cervical dysplasia Near sighted tremors Migraines Seasonal allergies History of alcohol abuse Fibromyalgia Chronic lumbar pain NARAYANAN (dyspnea on exertion) Tobacco abuse Panic disorder Vitamin D deficiency Abnormal pulmonary function test Skin lesions Acute pharyngitis Chronic cough 2 cmganglion cyst dorsum right wrist by index and long finge Lateral epicondylitis Left knee pain Eczema Chondromalacia, patella Chronic bronchitis Obesity Asthma Fatigue Hypersomnia ISIAH (obstructive sleep apnea) Home Medications ?Medication ?Instructions ?Recorded ?Last Taken ?Type buspirone 15 mg tablet 15 mg PO BID PRN PRN Anxiety 03/11/22 10/14/24 History calcium 600 mg (as 1 tab PO DAILY 03/11/22 03/17/22 History carbonate)-vitamin D3 10 mcg (400 unit) tablet cholecalciferol (vitamin D3) 50 2,000 mcg PO DAILY 03/11/22 03/17/22 History mcg (2,000 unit) capsule (Vitamin D3) fluticasone propionate 115 1 puff inhalation BID 03/11/22 03/17/22 History mcg-salmeterol 21 mcg/actuation HFA inhaler (Advair HFA) tizanidine 4 mg tablet 4 mg PO Q4H PRN PRN Pain 03/11/22 03/17/22 History albuterol sulfate 90 mcg/actuation 2 puff inhalation Q6H PRN 07/30/24 Unknown History aerosol inhaler (Ventolin HFA) shortness of breath or wheezing celecoxib 100 mg capsule 100 mg PO BID 07/30/24 Unknown History apple cider vinegar 600 mg capsule 450 mg PO BID 08/01/24 Unknown History norethindrone (contraceptive) 0.35 0.35 mg PO QDAY 08/15/24 Unknown History mg tablet pregabalin 75 mg capsule 75 mg PO TID 08/15/24 10/14/24 History Saccharomyces boulardii 250 mg 250 mg PO QDAY #90 caps 11/04/24 Unknown Rx capsule (Daily Probiotic (S. boulardii)) calcium polycarbophil 625 mg 1,250 mg (2 x 625 mg) PO QDAY #180 11/04/24 Unknown Rx tablet (FiberCon) tabs pantoprazole 40 mg tablet,delayed 40 mg PO BID #60 tabs 11/04/24 Unknown Rx release Allergy/AdvReac Type Severity Reaction Status Date / Time amoxicillin (From Augmentin) Allergy Anaphylaxis Verified 11/10/24 12:58 clavulanic acid (From Allergy Anaphylaxis Verified 11/10/24 12:58 Augmentin) hydrocodone Allergy Itching Verified 11/10/24 12:58 hydrocodone bitartrate (From Allergy Itching Verified 11/10/24 12:58 Vicodin) hydroxychloroquine (From Allergy PT UNSURE Verified 11/10/24 12:58 Plaquenil) OF REACTION Penicillins Allergy Rash Verified 11/10/24 12:58 cephalexin monohydrate (From AdvReac Other Verified 11/10/24 12:58 Keflex) diclofenac AdvReac Other Verified 11/10/24 12:58 Family History Brother Hypertension Mother Hypertension Ovarian cancer Diabetes Arthritis Father Asthma Brother Paranoid schizophrenia Son ADHD PTSD (post-traumatic stress disorder) Severe bipolar disorder ODD Father Heart disease Surgical History History of loop electrical excision procedure (LEEP) Hx of tubal ligation H/O excision of ganglion cyst Cervical procedures for precancerous cells Social History Smoking Status: Current every day smoker tobacco type: cigarettes Tobacco: How many years used: 17 second hand exposure: Yes alcohol intake: former substance use type: does not use ROS <KAREN Baker - Last Filed: 11/10/24 18:09> ROS ED Constitutional Constitutional ED: Denies chills or fever(s) Cardiovascular Cardiovascular: Denies chest pain Respiratory/Chest Respiratory/Chest: Denies dyspnea Gastrointestinal Gastrointestinal: Denies abdominal pain, nausea or vomiting Genitourinary Genitourinary ED: Denies dysuria, hematuria or urinary frequency Musculoskeletal Musculoskeletal: Reports myalgias Integumentary Denies rash Neurologic Neurologic: Denies paresthesias EXAM <KAREN Baker - Last Filed: 11/10/24 18:09> Physical Exam Const Vital Signs: 11/10/24 12:57 11/10/24 13:57 11/10/24 14:00 Temperature 96 F L Temperature Source Temporal Pulse Rate 94 94 76 Respiratory Rate 14 18 19 H Blood Pressure 134/88 H 140/96 H 140/76 H Blood Pressure Mean 103 110 97 Pulse Ox 99 96 98 Oxygen Delivery Method Room Air Room Air 11/10/24 15:00 11/10/24 16:00 11/10/24 16:29 Temperature 98.1 F Temperature Source Pulse Rate 77 77 71 Respiratory Rate 19 H 18 19 H Blood Pressure 103/73 139/72 H 110/79 Blood Pressure Mean 83 94 89 Pulse Ox 99 99 99 Oxygen Delivery Method Room Air Room Air Positive well nourished, well developed and no apparent distress General Appearance ED: well developed HEENT Reports normocephalic and head/scalp atraumatic Mouth ED: Yes moist mucous membranes normal Eyes PERRL and EOMs intact bilaterally Neck full ROM and supple Chest Wall inspection of chest normal Resp normal respiratory effort and clear to auscultation bilaterally Cardio regular rate and regular rhythm GI soft to palpation, non-tender, non-distended and no masses Back/Spine normal ROM and normal to inspection Extremity normal to inspection and full ROM Neuro oriented x3, CN's II-XII intact bilaterally, moves all extremities, no focal motor deficits and no sensory deficits noted Sensorium / Orientation: awake and alert Psych mental status grossly normal and thought process normal Skin no rashes or lesions noted and no wounds <Dr. Tamika Larsen DO - Last Filed: 11/13/24 15:32> Physical Exam Const Vital Signs: 11/10/24 12:57 11/10/24 13:57 11/10/24 14:00 Temperature 96 F L Temperature Source Temporal Pulse Rate 94 94 76 Respiratory Rate 14 18 19 H Blood Pressure 134/88 H 140/96 H 140/76 H Blood Pressure Mean 103 110 97 Pulse Ox 99 96 98 Oxygen Delivery Method Room Air Room Air 11/10/24 15:00 11/10/24 16:00 11/10/24 16:29 Temperature 98.1 F Temperature Source Pulse Rate 77 77 71 Respiratory Rate 19 H 18 19 H Blood Pressure 103/73 139/72 H 110/79 Blood Pressure Mean 83 94 89 Pulse Ox 99 99 99 Oxygen Delivery Method Room Air Room Air [facility] <KAREN Baker - Last Filed: 11/10/24 18:09> [facility] Narrative Medical decision making narrative: Patient presenting due to an episode of generalized muscle spasms that started this afternoon. She is lying in the bed comfortably but will randomly have an episode of spasming to different parts of her body, she is able to talk while the spasms occur. The symptoms then completely resolve. She has full range of motion to all 4 extremities. She is neurovascularly intact to the upper and lower extremities, no signs of infection, she denies any injury. Labs obtained to assess for leukocytosis, anemia, electrolyte abnormality, and rhabdomyolysis. She does have leukocytosis at 17.6, otherwise her CBC, BMP, CPK, and lactic acid are unremarkable. UA added on to assess for UTI, this shows 3+ bacteria but otherwise no WBCs, leukocytes, or nitrites. She has no symptoms of a UTI. She was medicated here with IV fluids, Toradol, and Norflex and on reexamination reports significant improvement of her symptoms. I did review previous imaging that she had performed by neurology, she had an MRI of her lumbar spine that showed degenerative changes. She does have tizanidine and NSAIDs that she takes at home when her symptoms started. She was able to ambulate with the nurse, she feels comfortable going home, when I went to check on her she was walking around her room. Recommended she continue to follow-up with neurology and her PCP, she will be discharged home in stable condition. Lab Data Attestation: I reviewed the patient's lab results. Labs: Laboratory Results - last 24 hr 11/10/24 11/10/24 11/10/24 13:17 15:16 15:59 WBC 17.6 H RBC 4.75 Hgb 14.2 Hct 40.7 MCV 85.7 MCH 29.9 MCHC 34.9 RDW Std Deviation 40.4 RDW Coeff of Tika 13.1 Plt Count 362 MPV 9.8 Immature Gran % (Auto) 0.500 Neut % (Auto) 69.1 Lymph % (Auto) 24.3 [place] % (Auto) 5.2 Eos % (Auto) 0.6 Baso % (Auto) 0.3 Absolute Neuts (auto) 12.2 H Absolute Lymphs (auto) 4.29 Nucleated RBC % 0 Atypical Lymphocytes 1+ Sodium 137 Potassium 3.8 Chloride 103 Carbon Dioxide 20.9 L Anion Gap 13 BUN 6 Creatinine 0.75 Est GFR (MDRD) Non-Af 101 BUN/Creatinine Ratio 8.6 L Glucose 103 H Lactic Acid < 1.0 Calcium 9.8 Total Creatine Kinase 82 Urine Color Straw Urine Clarity Cloudy Urine pH 7.0 Ur Specific [place] 1.005 Urine Protein 15 H Urine Glucose (UA) Normal Urine Ketones Negative Urine Occult Blood Negative Urine Nitrite Negative Urine Bilirubin Negative Urine Urobilinogen Normal Ur Leukocyte Esterase Negative Urine RBC 0-5 SEEN Urine WBC 0-5 SEEN Ur Squamous Epith Cells 0-5 SEEN Urine Bacteria 3+ Urine Mucus 0 SEEN <Dr. Tamika Larsen, DO - Last Filed: 11/13/24 15:32> [facility] Narrative Medical decision making narrative: Patient presenting due to an episode of generalized muscle spasms that started this afternoon. She is lying in the bed comfortably but will randomly have an episode of spasming to different parts of her body, she is able to talk while the spasms occur. The symptoms then completely resolve. She has full range of motion to all 4 extremities. She is neurovascularly intact to the upper and lower extremities, no signs of infection, she denies any injury. Labs obtained to assess for leukocytosis, anemia, electrolyte abnormality, and rhabdomyolysis. She does have leukocytosis at 17.6, otherwise her CBC, BMP, CPK, and lactic acid are unremarkable. UA added on to assess for UTI, this shows 3+ bacteria but otherwise no WBCs, leukocytes, or nitrites. She has no symptoms of a UTI. She was medicated here with IV fluids, Toradol, and Norflex and on reexamination reports significant improvement of her symptoms. I did review previous imaging that she had performed by neurology, she had an MRI of her lumbar spine that showed degenerative changes. She does have tizanidine and NSAIDs that she takes at home when her symptoms started. She was able to ambulate with the nurse, she feels comfortable going home, when I went to check on her she was walking around her room. Recommended she continue to follow-up with neurology and her PCP, she will be discharged home in stable condition. I have personally performed a face to face assessment of the patient and have reviewed the ARIANNA Note. I performed a substantive portion of the visit including all aspects of the following. My bazzi findings include: History is Patient is a 44-year-old female that reports history of muscle spasms for which she takes tizanidine 4. She also states that she has neuropathy throughout her entire body and she is under evaluation with neurology for this. She does note that she had recent spinal imaging as well. She states today she had a signed some paperwork with office and she felt that her muscles gave out. She then started have spasms and felt like her back was contorting and she could not control it. Her mother drove her here and she came in for further evaluation. On initial presentation patient reportedly was reportedly almost forcibly pushing her arm and had through the side of the bed and states that she could not control it. Patient had received IV fluids, Toradol and Norflex. I evaluated the patient after she received these medications and she was now sitting in the bed and acting much more appropriately. She states she still has intermittent spasms but was starting to feel better. Presentation is quite nearly. She has spasm but is intermittent I do not think this is a type of tetany. She has involvement of both sides of her body but no loss of consciousness I do not think this is seizure activity. Lab work including CBC, BMP, CPK, lactate (later added on because of elevated white blood cell count) and urinalysis obtained. As stated she had an elevated white blood cell count with no obvious source of infection. She does not have any meningeal encephalitis symptoms on exam (she does not have nuchal rigidity and is acting appropriately once her pain is controlled). She is not have a left shift. CPK is normal so low suspicion for rhabdomyolysis. Lactate is normal less consistent with sepsis or more severe infection. Urinalysis does not show any acute abnormalities. She does have 3+ bacteria however negative nitrates no white blood cells with mild contamination with 0-5 squamous epithelial cells. Suspect this is more contamination. She is not reporting any urine symptoms so will not culture. Patient has equal strength and sensation in all extremities. Her NIH is 0. She had a recent MRI of her lumbar spine as well on 09/16/2024 which was reviewed and showed no acute fracture, traumatic subluxation and multilevel degenerative changes with mild canal stenosis and neural foraminal narrowing. Regardless does not explain her acute presentation today especially she has involvement of upper and lower extremities. At this time I think patient can be discharged home she has pain control and able to ambulate. Jaxon hemodynamically stable. Seen but there is slight chronic component to it but it was exacerbated today. Discussed with patient I am not sure what caused this episode but this time I do think she does have a follow-up with neurology. She verbalized agreement understands plan. Discharged home in stable condition. Other additions or changes: [None] Lab Data Labs: Laboratory Results - last 24 hr 11/10/24 11/10/24 11/10/24 13:17 15:16 15:59 WBC 17.6 H RBC 4.75 Hgb 14.2 Hct 40.7 MCV 85.7 MCH 29.9 MCHC 34.9 RDW Std Deviation 40.4 RDW Coeff of Tika 13.1 Plt Count 362 MPV 9.8 Immature Gran % (Auto) 0.500 Neut % (Auto) 69.1 Lymph % (Auto) 24.3 [place] % (Auto) 5.2 Eos % (Auto) 0.6 Baso % (Auto) 0.3 Absolute Neuts (auto) 12.2 H Absolute Lymphs (auto) 4.29 Nucleated RBC % 0 Atypical Lymphocytes 1+ Sodium 137 Potassium 3.8 Chloride 103 Carbon Dioxide 20.9 L Anion Gap 13 BUN 6 Creatinine 0.75 Est GFR (MDRD) Non-Af 101 BUN/Creatinine Ratio 8.6 L Glucose 103 H Lactic Acid < 1.0 Calcium 9.8 Total Creatine Kinase 82 Urine Color Straw Urine Clarity Cloudy Urine pH 7.0 Ur Specific [place] 1.005 Urine Protein 15 H Urine Glucose (UA) Normal Urine Ketones Negative Urine Occult Blood Negative Urine Nitrite Negative Urine Bilirubin Negative Urine Urobilinogen Normal Ur Leukocyte Esterase Negative Urine RBC 0-5 SEEN Urine WBC 0-5 SEEN Ur Squamous Epith Cells 0-5 SEEN Urine Bacteria 3+ Urine Mucus 0 SEEN Discharge Plan Triage Chief Complaint: Weakness ED Midlevel Provider: Dagmar Yi ED Provider: Tamika Larsen Dx/Rx/DC Orders Clinical Impression: Muscle spasm, Muscle pain Instructions: ED Muscle Spasm, ED Myalgias Prescriptions: No Action celecoxib 100 mg capsule 100 mg PO BID albuterol sulfate [Ventolin HFA] 90 mcg/actuation HFA aerosol inhaler 2 puff inhalation Q6H PRN (Reason: shortness of breath or wheezing) apple cider vinegar 600 mg capsule 450 mg PO BID pregabalin 75 mg capsule 75 mg PO TID norethindrone (contraceptive) 0.35 mg tablet 0.35 mg PO QDAY pantoprazole 40 mg tablet,delayed release (DR/EC) 40 mg PO BID Qty: 60 0RF calcium polycarbophil [FiberCon] 625 mg tablet 1,250 mg PO QDAY Qty: 180 1RF Saccharomyces boulardii [Daily Probiotic (S. boulardii)] 250 mg capsule 250 mg PO QDAY Qty: 90 1RF tizanidine 4 mg tablet 4 mg PO Q4H PRN PRN (Reason: Pain) buspirone 15 mg tablet 15 mg PO BID PRN PRN (Reason: Anxiety) fluticasone propion-salmeterol [Advair HFA] 115-21 mcg/actuation HFA aerosol inhaler 1 puff INHALATION BID calcium carbonate-vitamin D3 600 mg-10 mcg (400 unit) tablet 1 tab PO DAILY cholecalciferol (vitamin D3) [Vitamin D3] 50 mcg (2,000 unit) capsule 2,000 mcg PO DAILY Primary Care Provider: Velasquez Finley Referrals: Velasquez Finley DO [Primary Care Provider] - 5-7 Days Activity Restrictions/Additional Instructions: Follow-up with your PCP and neurology, return for any worsening symptoms or other concerns. Print Language: Somali Disposition Disposition: Home, Self Care Discharge Date/Time: 11/10/24 16:53
[2024-11-10 13:41] LABS: Absolute Lymphocyte Count 4.29 X10^3/uL (0.83-4.51); Absolute Neutrophil Count 12.2 X10^3/uL (2.0-7.7); Basophil# 0.06 X10^3/uL; Basophil% 0.3 % (0-1); Eosinophils% 0.6 % (0-5); Hematocrit 40.7 % (37-47); Hemoglobin 14.2 g/dL (12.0-15.0); Lymphocyte # 4.29 X10^3/ul (0.83-4.51); Lymphocyte % 24.3 % (19-41); Mean Corp Hgb Conc 34.9 g/dL (32-36); Mean Corpuscular Hgb 29.9 pg (27.0-32.0); Mean Corpuscular Volume 85.7 fL (81-99); Mean Platelet Vol. 9.8 fl (6.2-12.0); Monocyte# 0.92 X10^3/uL; Monocyte% 5.2 % (0-10); NRBC Flagged by Analyzer 0 % (0-5); Neutrophil # 12.18 X10^3/uL (2.7-7.7); Neutrophil % 69.1 % (47-70); POSITIVE MORPHOLOGY YES; Platelet Count 362 K/mm3 (150-450); RBC Distribution Width CV 13.1 % (11.6-14.6); RBC Distribution Width SD 40.4 fl (35.1-43.9); Red Blood Count 4.75 M/mm3 (4.2-5.4); White Blood Count 17.6 K/mm3 (4.4-11.0)
[2024-11-10] MEDS: Ketorolac 15 MG/ML Vial IV (13:42)
[2024-11-10] MEDS: Orphenadrine 60 MG/2 ML Ampul IM (13:43)
[2024-11-10 13:57] VITALS: BP 140/96; PULSE 94; RESP 18; O2SAT 96
[2024-11-10 13:58] LABS: Anion Gap 13 (5-15); BUN 6 mg/dL (4-19); BUN/Creat Ratio 8.6 RATIO (10-20); Calcium,Total 9.8 mg/dL (7.6-11.0); Carbon Dioxide 20.9 mmol/L (21.0-32.0); Chloride 103 mmol/L (98-108); Creatinine, Serum 0.75 mg/dL (0.70-1.20); EST Glomerular Filtration Rate 101 (>60); Glucose 103 mg/dL (70-99); Potassium 3.8 mmol/L (3.3-5.1); Sodium Level 137 mmol/L (133-145)
[2024-11-10 14:00] VITALS: BP 140/76; PULSE 76; RESP 19; O2SAT 98
[2024-11-10 14:05] LABS: Differential Indicated SCAN CRITERIA MET
[2024-11-10 14:07] LABS: Atypical Lymphocyte 1+ %
[2024-11-10 14:45] LABS: CPK Total, Creatine Kinase 82 U/L (24-195)
[2024-11-10 15:00] VITALS: BP 103/73; PULSE 77; RESP 19; O2SAT 99
[2024-11-10 15:50] LABS: Lactic Acid < 1.0 mmol/L (0.0-2.0)
[2024-11-10 16:00] VITALS: BP 139/72; PULSE 77; RESP 18; O2SAT 99
[2024-11-10 16:02] LABS: Mucous, Urine 0 SEEN /hpf (<or=2+)
[2024-11-10 16:04] LABS: Color, Urine Straw (Yellow); Glucose, Dipstick Normal (Normal); Ketone-Dipstick Negative (Negative); Leukocyte Esterase-Dipstick Negative /ul (Negative); Nitrite-Dipstick Negative (Negative); Occult Blood-Urine Negative /ul (Negative); Protein-Dipstick 15 mg/dl (Negative); Specific Gravity, Urine 1.005 (1.002-1.030); Urine Bilirubin Dipstick Negative (Negative); Urine Clarity Cloudy (Clear); Urine Urobilinogen Normal (Normal)
[2024-11-10 16:09] LABS: Bacteria 3+ /hpf (None Seen); Red Blood Cells-Urine 0-5 SEEN /hpf (0-5); Squamous Epithelial Cells - UA 0-5 SEEN /hpf (5-10); White Blood Cells 0-5 SEEN /hpf (0-5)
[2024-11-10 16:29] VITALS: BP 110/79; PULSE 71; RESP 19; TEMP 36.7; O2SAT 99
== END 2024-11-10 16:53 | disposition home or self-care (01) ==
PROVIDERS: Physician Assistant; Emergency Provider Emergency Medicine; PCP Family Medicine; Visit Provider Emergency Medicine
DX: M62.838 Other muscle spasm (principal); G47.33 Obstructive sleep apnea (adult) (pediatric); J45.909 Unspecified asthma, uncomplicated; K21.9 Gastro-esophageal reflux disease without esophagitis; Z98.51 Tubal ligation status; F17.210 Nicotine dependence, cigarettes, uncomplicated
CPT/HCPCS: 80048; 81001; 82550; 83605; 85025; 96372; 96374; 99283; A4216

== ENCOUNTER 2024-11-22 07:49 | Day surgery (SDC) | payer MEDICAID, SELFPAY ==
[2024-11-22] MEDS: Lidocaine Jelly 2% 20 ML Syringe (URO-JET) 1 APPLIC (08:18)
[2024-11-22 08:23] VITALS: BP 119/82; PULSE 58; RESP 16; TEMP 36.8; O2SAT 99
== END 2024-11-22 08:43 | disposition home or self-care (01) ==
PROVIDERS: PCP Family Medicine; Referring Provider Internal Medicine Gastroenterology; Visit Provider Internal Medicine Gastroenterology
PROC: F00ZJWZ Instrumental Swallowing and Oral Function Assessment using Swallowing Equipment (ICD-10-PCS; CPT 43235; principal; 2024-11-22 07:55)
DX: R13.10 Dysphagia, unspecified (principal)
CPT/HCPCS: 91010

== ENCOUNTER → 2025-02-12 | Outpatient (CLI) | payer MEDICAID, SELFPAY ==
--- NOTE | 2025-02-12 10:23 | RAD_ITS ---
EXAM: XR Right Hand Complete, 3 or More Views CLINICAL INDICATION: PAIN IN FINGER TECHNIQUE: Frontal, lateral and oblique views of the right hand. COMPARISON: No relevant prior studies available. FINDINGS: BONES/JOINTS: Unremarkable. No acute fracture. No dislocation. SOFT TISSUES: Unremarkable. RAD/Hand Min 3 Views IMPRESSION: No acute fracture. Reading Location: [id number]
== END | disposition home or self-care (01) ==
LOC: MTRAD 10:19
PROVIDERS: PCP Family Medicine; Referring Provider Family Medicine; Visit Provider Family Medicine
DX: M79.644 Pain in right finger(s) (principal)
CPT/HCPCS: 73130